=== PATIENT | male | born 1950 | race Caucasian/White ===

== ENCOUNTER 2021-06-10 12:48 | Inpatient (IN) | payer MEDICARE, MEDICAID, SELFPAY ==
--- NOTE | ~2021-06-10 | XR_ITS ---
EXAMINATION: XR abdomen/kub 1V DATE: 06/14/2021 09:01 INDICATION: Abdominal pain. Nausea. TECHNIQUE: A supine view of the abdomen on 2 radiographs was obtained. COMPARISON: CT abdomen and pelvis 06/10/2021 FINDINGS: There are no dilated loops of bowel. There is a moderate volume of stool in the colon. Ther e is no visible urolithiasis. There are phleboliths in the pelvis. IMPRESSION: 1. Normal bowel gas pattern. Reviewed, dictated and finalized at location A. R SUPERINTENDENT
--- NOTE | ~2021-06-10 | XR_ITS ---
EXAMINATION: XR hip BI 2V w AP pelvis DATE: 06/10/2021 13:48 INDICATION: Pelvis injury. TECHNIQUE: An anteroposterior view of the pelvis and 2 views of each hip were obtained. COMPARISON: None. FINDINGS: Bone alignment is normal. No fracture. There is severe lumbar spondylosis. There is moderat e osteoarthritis of the hips. IMPRESSION: 1. Moderate osteoarthritis of the hips. Reviewed, dictated and finalized at location A. L ADMINISTRATIVE ASSISTANT
--- NOTE | ~2021-06-10 | XR_ITS ---
EXAMINATION: XR chest 2V DATE: 06/12/2021 12:06 INDICATION: Shortness of breath. Pneumonia. TECHNIQUE: frontal and lateral views of the chest were obtained. COMPARISON: Chest radiograph dated 06/10/2021 FINDINGS: Subtle opacities in the left lower lung zone consistent with pneumonia. Calcified right upper lobe no dule consistent with old granulomatous disease. No pulmonary edema, pleural effusion or pneumothorax. Heart size is normal. Median sternotomy wires and mediastinal surgical clips are seen, likely from p rior coronary artery bypass grafting. Mild degenerative skeletal changes in the spine and at both kim ulders. Prior distal right clavicle resection. IMPRESSION: 1. No significant change in subtle left lower lobar opacities consistent with pneumonia. Reviewed, dictated and finalized at location H. IL MANAGEMENT TRAINEE IMPRESSION: 1. No significant change in subtle left lower lobar opacities consistent with p neumonia.
--- NOTE | ~2021-06-10 | XR_ITS ---
EXAMINATION: XR barium swallow modified DATE: 06/14/2021 09:07 INDICATION: Aspiration. TECHNIQUE: The patient was given barium-containing material of multiple consistencies to swallow by t he speech pathologist while I performed fluoroscopy. Fluoroscopy exposure time was 0.5 minutes. The n umber of fluoroscopy images saved to the PACS was 2. Dose-area product was 0.414 Gy-cm^2. FINDINGS: There was laryngeal penetration and aspiration of thin liquids. IMPRESSION: 1. Laryngeal penetration and aspiration of thin liquids. 2. Please refer to the speech therapy report for recommendations. Reviewed, dictated and finalized at location A. NE SERVICE OPERATOR
--- NOTE | ~2021-06-10 | CT_ITS ---
EXAMINATION: CT cervical spine wo con DATE: 06/10/2021 13:39 INDICATION: Neck pain. Fall. TECHNIQUE: Computed tomography (CT) of the cervical spine was performed without intravenous contrast. Automated exposure control and iterative reconstruction technique were employed. The dose-length pro duct was 264.52 mGy-cm. COMPARISON: None FINDINGS: Bone alignment is normal. Vertebral body heights are normal. There is moderately decreased disc height at C2-C3, severely decreased disc height from C3-C4 through C6-C7, and mildly decreased d isc height at C7-T1 with endplate remodeling. The following disc levels are specifically discussed: C2-C3: There is mild right and moderate left uncovertebral joint osteoarthritis. There is mild right and severe left facet joint osteoarthritis. There is mild left neural foraminal stenosis. There is no central canal stenosis. C3-C4: There is severe bilateral uncovertebral joint osteoarthritis. There is moderate right and shani re left facet joint osteoarthritis. There is mild bilateral neural foraminal stenosis. There is mild central canal stenosis. C4-C5: There is severe bilateral uncovertebral joint osteoarthritis. There is severe right and modera te left facet joint osteoarthritis. There is moderate right and mild left neural foraminal stenosis. There is mild central canal stenosis. C5-C6: There is severe bilateral uncovertebral joint osteoarthritis. There is mild bilateral facet karolina int osteoarthritis. There is moderate bilateral neural foraminal stenosis. There is mild central yenny l stenosis. C6-C7: There is severe bilateral uncovertebral joint osteoarthritis. There is moderate bilateral face t joint osteoarthritis. There is mild bilateral neural foraminal stenosis. There is mild central yenny l stenosis. C7-T1: There is no uncovertebral joint osteoarthritis. There is severe bilateral facet joint osteoart hritis. There is no neural foraminal stenosis. There is no central canal stenosis. IMPRESSION: 1. No fracture. 2. Severe cervical spondylosis. Reviewed, dictated and finalized at location A. NT ADMINISTRATOR
--- NOTE | ~2021-06-10 | CT_ITS ---
EXAMINATION: CT abdomen pelvis wo con DATE: 06/10/2021 15:35 INDICATION: Abdominal pain TECHNIQUE: Computed tomography (CT) of the abdomen and pelvis was performed without intravenous contr ast. Automated exposure control and iterative reconstruction technique were employed. Exam dose: 535 .18 mGy-cm total exam DLP. COMPARISON: None. FINDINGS: There is prominent patchy left lower lobe infiltrate likely due to pneumonia. Aspiration pn eumonitis is not excluded. The right lower lung field appears clear. Status post sternotomy. Normal heart size. No pericardial or pleural effusion. The gallbladder is present. No gallbladder wall thickening or pericholecystic fluid or fat stranding is noted. No bile duct or pancreatic duct dilatation. No hepatic space-occupying mass lesion is detected. Normal splenic size. Normal morphology of the adr enal glands. No renal mass lesion or urinary tract calculus or hydroureteronephrosis. There is mild t hickening of the urinary bladder wall and prostate enlargement. No evidence of appendicitis. No bowel obstruction, bowel wall thickening, pneumatosis or intraperiton eal free air. Very small fat-containing umbilical hernia. There is atherosclerotic calcification but normal caliber of the abdominal aorta. No intraperitoneal or retroperitoneal or pelvic mass lesion or adenopathy or ascites. Bilateral hip prominent osteoarthritis. Multilevel degenerative disc disease of the lumbar spine, particularly severe at L4-5 and L5-S1. IMPRESSION: Prominent left lower lobe infiltrate likely due to pneumonia versus aspiration pneumonit is Status post sternotomy Reviewed, dictated and finalized at Location A. Reviewed, dictated and finalized at location B. LEASE BROKER IMPRESSION: Prominent left lower lobe infiltrate likely due to pneumonia versu s aspiration pneumonitis Status post sternotomy
--- NOTE | ~2021-06-10 | CT_ITS ---
EXAMINATION: CT brain wo con DATE: 06/10/2021 13:39 INDICATION: Head injury. TECHNIQUE: Computed tomography (CT) of the head was performed without intravenous contrast. The mA wa s adjusted according to patient size. Iterative reconstruction technique was employed. The dose-lengt h product was 681.00 mGy-cm. COMPARISON: None FINDINGS: There are old infarcts in the jadiel and left thalamus. There is cystic encephalomalacia in t he left frontoparietal deep white matter. There are scattered areas of low attenuation in the cerebra l white matter. There is no intracranial hemorrhage, acute infarction, or abnormal intracranial mass lesion. The ventricles are normal in size. There is mild mucosal thickening in the ethmoid sinuses. T here are likely changes of ocular lens replacement surgeries. The mastoid air cells are normal. IMPRESSION: 1. 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 2. Extensive nonspecific cerebral white matter disease, which likely represents chronic small vessel ischemic disease. Reviewed, dictated and finalized at location A. ING MOLDER IMPRESSION: 1. 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 2. Extensive nonspecific cerebral white matter disease, which likely represents chronic small vessel ischemic disease.
--- NOTE | ~2021-06-10 | XR_ITS ---
EXAMINATION: XR ankle LT min 3V DATE: 06/10/2021 13:49 INDICATION: Left ankle pain. TECHNIQUE: 4 views of left ankle were obtained. COMPARISON: None. FINDINGS: Bone alignment is normal. No fracture. Joint spaces are well maintained. There is a surgica l clip in the medial soft tissues. IMPRESSION: 1. No fracture. Reviewed, dictated and finalized at location A. NG CAPTAIN IMPRESSION: 1. No fracture.
--- NOTE | ~2021-06-10 | XR_ITS ---
EXAMINATION: XR chest 1V DATE: 06/10/2021 13:49 INDICATION: Fall. TECHNIQUE: A single frontal view of the chest was obtained. COMPARISON: None. FINDINGS: A calcified right lung nodule and calcified right hilar lymph nodes are consistent with old granulomatous disease. A skin fold overlies left hemithorax. No pleural effusion or pneumothorax. Th e heart size is normal. Median sternotomy wires and mediastinal surgical clips are seen, likely from prior coronary artery bypass grafting. IMPRESSION: 1. No acute cardiopulmonary disease. Reviewed, dictated and finalized at location A. R PATTERN INSPECTOR
--- NOTE | ~2021-06-10 | US_ITS ---
EXAMINATION: US arterial ankle brachial ind DATE: 06/11/2021 10:23 INDICATION: Decreased pedal pulses TECHNIQUE: Segmental pressures and plethysmographic and Doppler waveforms of the brachial and lower e xtremity arteries were obtained. COMPARISON: None. FINDINGS: Right and left brachial artery pressures of 169 mm Hg and 175 mm Hg, respectively, are concordant (no rmal difference <= 30 mmHg). The right ankle-brachial index (NICOLA) is 1.1 (normal >= 0.9-1.0). The right great toe-brachial index ( TBI) is that determined because the right great toe has been amputated. (normal >= 0.65). Arterial Do ppler waveforms are biphasic. The left NICOLA is not determined because the posterior tibial and dorsalis pedis arteries could not be occluded.. The left TBI is 0.49. Arterial Doppler waveforms are biphasic. IMPRESSION: Normal right NICOLA Left NICOLA could not be obtained because the posterior tibial and dorsalis pedis arteries could not be occluded Status post right great toe amputation Left TBI measures 0.49, below normal range Reviewed, dictated and finalized at Location A. Reviewed, dictated and finalized at location A. ETCHER
--- NOTE | ~2021-06-10 | US_ITS ---
US renal BI DATE: 06/11/2021 09:40 INDICATION: Renal failure TECHNIQUE: Real-time imaging of kidneys and urinary bladder COMPARISON: 06/10/2021 CT abdomen pelvis FINDINGS: Kidneys each measure approximately 8 cm length. Approximately 1.2 cm left renal cyst is sug gested. No hydronephrosis of either kidney is noted. There is diffuse thickening of the urinary bladder wall. Prostate enlargement is noted.. IMPRESSION: No hydronephrosis of either kidney 1.2 cm left renal cyst Prostate enlargement and diffuse thickening of the urinary bladder wall Reviewed, dictated and finalized at Location A. Reviewed, dictated and finalized at location A. EYARD SUPERVISOR
--- NOTE | ~2021-06-10 | XR_ITS ---
EXAMINATION: XR barium swallow modified DATE: 06/11/2021 09:22 INDICATION: Dysphagia. TECHNIQUE: The patient was given barium-containing material of multiple consistencies to swallow by awa reyes speech pathologist while I performed fluoroscopy. Dose-area product was 0.434 Gy-cm2. 0.6 minutes fluoroscopy time FINDINGS: Oral Stage: Within functional limits Pharyngeal Phase: Laryngeal penetration and aspiration Cervical/Esophageal Stage: Within functional limits IMPRESSION: Modified esophagram findings as above. Please refer to the speech therapy report for spec amg specialty hospital recommendations. Reviewed, dictated and finalized at Location A. Reviewed, dictated and finalized at location A. GENCY MEDICAL TECHNICIAN/DRIVER IMPRESSION: Modified esophagram findings as above. Please refer to the speech t herapy report for specific recommendations.
--- NOTE | ~2021-06-10 | XR_ITS ---
EXAMINATION: XR elbow RT min 3V DATE: 06/10/2021 13:49 INDICATION: Right elbow injury with skin tear. TECHNIQUE: 4 views of right elbow were obtained. COMPARISON: None. FINDINGS: Bone alignment is normal. No fracture. Joint spaces are well maintained. There is no elbow joint effusion. IMPRESSION: 1. No fracture. Reviewed, dictated and finalized at location A. SCHOOL TEACHER IMPRESSION: 1. No fracture.
[2021-06-10 12:47] VITALS: BP 129/91; PULSE 92; RESP 18; TEMP 37.2; O2SAT 100
--- NOTE | 2021-06-10 13:07 | PC.NURSE ---
upon inspection of patients bilateral feet and toes appear cold to touch and discolored. right and left pedal pulses were found with doppler
--- NOTE | 2021-06-10 13:21 | ECG_ITS ---
Measurements Intervals [place] Rate: 91 P: 93 OR: 147 QRS: -42 QRSD: 94 T: 133 QT: 390 QTc: 481 Interpretive Statements SINUS RHYTHM LEFT AXIS DEVIATION INCOMPLETE RIGHT BUNDLE BRANCH BLOCK DELAYED PRECORDIAL R/S TRANSITION NONSPECIFIC ST & T-WAVE ABNORMALITY- SEPT/LAT LEADS BASELINE ARTIFACT- I, II, III, AVR, AVL, AVF BORDERLINE ECG Electronically Signed On 06-10-2021 17:07:27 FIRE LOSS PREVENTION ENGINEER by Quincy Rajput D.O.
--- NOTE | 2021-06-10 13:32 | PC.NURSE ---
patient to radiology.
--- NOTE | 2021-06-10 13:36 | ED.FALL ---
HPI - Fall General Chief Complaint: Fall Stated Complaint: FELL OUT OF BED-L FOOT PAIN Time Seen by Provider: 06/10/21 13:00 Source: EMS and RN notes reviewed Mode of arrival: EMS History of Present Illness HPI Narrative: This is a 70 year old male with history of chronic kidney disease, anemia, DM, and atrial fibrillation who presents for evaluation after an unwitnessed fall. He was found after falling out of bed this morning but they are unsure of what time he fell. He was found to have abrasion to his head, right elbow skin tear and left ankle pain. Patient is oriented x 2 and it is reported he is at his baseline. Related Data Allergies Allergy/AdvReac Type Severity Reaction Status Date / Time amoxicillin Allergy Unknown Unverified 06/10/21 13:07 clavulanic acid Allergy Unknown Unverified 06/10/21 13:07 [From Augmentin] insulin detemir Allergy Unknown Unverified 06/10/21 13:07 venlafaxine Allergy Unknown Unverified 06/10/21 13:07 Review of Systems Review of Systems: All systems reviewed & are unremarkable except as noted in HPI and below PMFSH Past Medical History Medical History (Updated 06/10/21 @ 17:02 by Olga Calvillo MD) Anemia Chronic kidney disease Diabetes mellitus Hyperlipidemia Surgical History Surgical History (Updated 06/10/21 @ 13:52 by Olga Calvillo MD) Hx of CABG Social History Social History (Updated 06/10/21 @ 13:52 by Olga Calvillo MD) Smoking status: Unknown if ever smoked Exam Const: General: no acute distress and alert Other: oriented 2 HENMT: Head: normocephalic and other (abrasion to mid forehead) Face and sinus: face symmetric Mouth: Yes Normal oral and palatal mucosa present, Yes lip normal, Yes oropharynx normal and Yes moist mucous membranes Throat: posterior oropharynx normal Eyes: Pupils: Equal, round and reactive pupils present EOM: EOMs intact bilaterally Neck: Neck: normal visual inspection Chest: Chest palpation & inspection: normal inspection of the chest Resp: Effort & Inspection: normal respiratory effort and no retractions Auscultation: clear to auscultation bilaterally Cardio: Rate: regular rate Rhythm: regular rhythm Heart sounds: no murmurs GI: GI Palp: Yes Soft to palpation, No Tenderness to palpation present (GI) and No Guarding due to palpation present (GI) Auscultation: normal bowel sounds Extrem: Other: moves all extremities, able to doppler bilateral pedal pulses Course Reevaluation(s) Reevaluation #1: PAtient will be admitted for pneumonia, UTI and hypoglycemia. PAtient coughs when he attempted to drink orange juice. [facility] and patient is on nectar thickened liquids and is known to aspirate. I discussed with Pamela Briceno who accepts patient to [facility] Date: 06/10/21 Time: 16:57 Vital Signs Vital signs: Vital Signs Temperature 98.9 F 06/10/21 12:47 Pulse Rate 92 06/10/21 12:47 Respiratory Rate 18 06/10/21 12:47 Blood Pressure 129/91 H 06/10/21 12:47 Pulse Oximetry 100 06/10/21 12:47 Temperature 98.9 F 06/10/21 12:47 Pulse Rate 78 06/10/21 15:18 Respiratory Rate 18 06/10/21 12:47 Blood Pressure 161/73 H 06/10/21 15:18 Pulse Oximetry 97 06/10/21 15:18 MDM - Fall Lab Data Attestation: I reviewed the patient's lab results. Result diagrams: 06/10/21 14:07 06/10/21 14:07 Labs: Lab Results 06/10/21 06/10/21 06/10/21 Range/Units 14:07 14:07 14:28 WBC 18.7 H (4.5-10.0) K/mm3 RBC 4.77 (4.6-6.20) M/mm3 Hgb 13.9 L (14.0-18.0) g/dL Hct 44.6 (42.0-52.0) % MCV 93.5 (80-100) fl MCH 29.1 (26-34) pg MCHC 31.2 L (32-36) g/dl RDW 15.7 H (11.5-14.5) % Plt Count 294 (150-375) k/mm3 MPV 11.4 H (7.4-10.4) fl Immature Gran % (Auto) Not Reportable Neut % (Auto) Not Reportable Lymph % (Auto) Not Reportable [place] % (Auto) Not Reportable Eos % (Au
[2021-06-10 14:20] LABS: Hematocrit 44.6 % (42.0-52.0); Hemoglobin 13.9 g/dL (14.0-18.0); Mean Corpuscular HGB Conc 31.2 g/dl (32-36); Mean Corpuscular Hemoglobin 29.1 pg (26-34); Mean Corpuscular Volume 93.5 fl (80-100); Mean Platelet Volume 11.4 fl (7.4-10.4); Platelet Count Result 294 k/mm3 (150-375); Red Blood Count 4.77 M/mm3 (4.6-6.20); Red Cell Distribution Width 15.7 % (11.5-14.5); White Blood Count 18.7 K/mm3 (4.5-10.0)
[2021-06-10 14:33] LABS: Alanine Aminotransferase 46 U/L (4-50); Albumin Level 4.4 g/dL (3.5-5.1); Alkaline Phosphatase 147 U/L (38-126); Anion Gap 12 mmol/L (8-16); Aspartate Amino Transferase 33 U/L (17-59); Bilirubin,Total 0.5 mg/dL (0.2-1.3); Blood Urea Nitrogen 60 mg/dL (9-20); Calcium 10.2 mg/dL (8.4-10.2); Carbon Dioxide 33 mmol/L (22-30); Chloride 101 mmol/L (98-107); Creatine Kinase 45 U/L (55-170); Estimated CRCL calculation 16 ml/min; Estimated Glomerular Filt Rate 19; Glucose 37 mg/dL (65-110); Lipase 30 U/L (23-300); Potassium 4.3 mmol/L (3.4-5.0); Sodium 146 mmol/L (137-145)
--- NOTE | 2021-06-10 14:33 | PC.NURSE ---
patient stuck multiple times for lab draws. unsuccessful at this time. phlebotomy called to obtain blood draw.
--- NOTE | 2021-06-10 14:42 | PC.NURSE ---
Patient given apple juice to increase blood sugar.
[2021-06-10 14:44] LABS: Band Neutrophils Percent 9 % (0-6); Hypochromasia 1+ (NORMAL); Monocytes Absolute Manual 0.37 K/mm3 (0.1-0.90); Monocytes Percent Manual 2 % (3-9); Neutrophils Absolute Manual 17.01 K/mm3 (1.3-6.7); Neutrophils Percent Manual 82 % (46-73); Platelet Estimate Adequate (Adequate); Total Cells Counted 100
[2021-06-10 14:45] LABS: Anisocytosis 1+ (NORMAL)
[2021-06-10 15:05] LABS: Glucose Point of Care 31 mg/dl (65-105)
[2021-06-10] MEDS: DEXTROSE 50% 25 GM/50 ML SYRINGE IV PUSH (15:06)
[2021-06-10 15:07] LABS: Add Urine Microscopic? YES; Appearance Urine Cloudy (Clear); Bacteria Urine 3+ /hpf; Bilirubin Urine Negative (Negative); Blood Urine 2+ (Negative); Color Urine Amber (Yellow); Glucose Urine UA 3+ mg/dL (Negative); Ketones Urine Negative (Negative); Leukocyte Esterase Ur 3+ LEU/UL (Negative); Mucus Urine Rare /lpf; Nitrate Urine Negative (Negative); Protein Urine 3+ mg/dL (Negative); RBC Urine 21-50 /hpf (0-2); Specific Grav Ur 1.015 (1.001-1.035); Squamous Epithelial Cell Urine Few /hpf (Few); Urobilinogen Urine Negative mg/dL (<2.0); WBC Urine >75 /hpf
--- NOTE | 2021-06-10 15:16 | PC.NURSE ---
attempted to give patient PO apple juice but patient began to cough after ingestion. pt. thoroughly suctioned and EDP Karli aware.
[2021-06-10 15:18] VITALS: BP 161/73; PULSE 78; O2SAT 97
[2021-06-10 15:26] LABS: Glucose Point of Care 146 mg/dl (65-105)
--- NOTE | 2021-06-10 15:28 | PC.NURSE ---
talked to [facility] regarding a patients normal mental status and diet. they state pt. has a mechanical soft diet, and chokes after everything, also still has been receiving insulin EDP Karli is notified.
--- NOTE | 2021-06-10 15:32 | PC.NURSE ---
patient to CT
[2021-06-10] MEDS: SODIUM CHLORIDE 0.9% IV 1,000 ML 999 ML IV CONT ×2 (15:46→16:54)
[2021-06-10 16:21] LABS: Glucose Point of Care 117 mg/dl (65-105)
--- NOTE | 2021-06-10 16:30 | PM.IMHP ---
H&P: HPI History of Present Illness Date/Time: 06/10/21 16:30 Chief Complaint: Unwitnessed fall. Narrative: This is a 70-year-old male with insulin-dependent diabetes, coronary artery disease, paroxysmal atrial fibrillation, chronic kidney disease and several other comorbidities who presented to the emergency department earlier today via EMS from [facility] for evaluation after an unwitnessed fall. He is alert and oriented x2 (his reported baseline) but is not a great historian and as such some of the following is obtained via a review of his electronic medical records. According to EMS documentation, the patient was found lying next to his bed and is thought that he probably had fallen out of bed as he was noted to have a skin tear on the right elbow and abrasions to the forehead. Initially the patient tells me that he does not remember how he fell but later on interview he reported that he got up and felt dizzy and he is concerned that he may have passed out. His vital signs were stable on arrival to the emergency department. Pertinent labs included a leukocytosis with a left shift, mild hypernatremia, a glucose of 37, and a BUN and creatinine of 60 and 3.30 respectively. Multiple images were taken and ruled out acute injuries from the fall. He was noted to have a prominent left lower lobe infiltrate felt to be due to pneumonia verses aspiration pneumonitis and an abnormal urinalysis and he is being admitted in this setting. He has no complaints at the time my evaluation and he specifically denies fever, chills, sweats, headache, cold and flu symptoms, cough, chest pain, shortness of breath, nausea, vomiting, diarrhea, and dysuria. Review of Systems Review of Systems: Twelve systems were reviewed but are limited as he is not the greatest historian. He complains of mild left ankle pain but nothing significant. He denies claudication. Except as documented all other systems were reviewed and are negative. [facility] Past Medical History Medical History (Updated 06/10/21 @ 21:31 by Pamela Briceno PA-C) Anemia Chronic anticoagulation Chronic kidney disease Coronary artery disease Depression with anxiety Hyperlipidemia Paroxysmal atrial fibrillation Type 2 diabetes mellitus Surgical History Surgical History (Updated 06/10/21 @ 21:22 by Pamela Briceno PA-C) History of coronary artery bypass graft Family History Family History Other Unknown family medical history Social History Social History (Updated 06/10/21 @ 21:23 by Pamela Briceno PA-C) Social History: Surrogate decision maker: MANUEL Mejía. Code status: Full code. Smoking status: Never smoker Alcohol intake: never Substance use: never Substance use type: does not use Additional living arrangements comments: Currently at [facility]. Essentially wheelchair-bound. Additional occupation/education comments: Retired. Meds Home Medications and Allergies Home Medications Medication Instructions Recorded Confirmed Type acetaminophen 650 mg PO Q6H PRN 06/10/21 06/10/21 History aspirin 81 mg PO DAILY 06/10/21 06/10/21 History atorvastatin 80 mg PO HS 06/10/21 06/10/21 History benzonatate 100 mg PO TID PRN 06/10/21 06/10/21 History bisacodyl 5 mg PO DAILY PRN 06/10/21 06/10/21 History carboxymethylcellulose sodium 1 drp RIGHT EYE Q2H PRN 06/10/21 06/10/21 History [Artificial Tears ([facility])] citalopram 40 mg PO DAILY 06/10/21 06/10/21 History ferrous sulfate 325 mg PO DAILY 06/10/21 06/10/21 History furosemide 40 mg PO DAILY 06/10/21 06/10/21 History insulin lispro 3 unit SUBCUT TIDWM 06/10/21 06/10/21 History insulin lispro See Rx Instructions .ROUTE .COMPLEX 06/10/21 06/10/21 History metoprolol succinate 50 mg PO DAILY 06/10/21 06/10/21 History ondansetron [Zofran ODT] 4 mg PO TID PRN 06/10/21 06/10/21 History polyethylene glycol 3350 17 g PO DAILY PRN 06/10/21
--- NOTE | 2021-06-10 17:04 | PC.NURSE ---
EDP Calvillo aware of pt with difficult blood draw. per EDP no blood cultures needed at this time.
[2021-06-10 17:05] LABS: Glucose Point of Care 119 mg/dl (65-105)
[2021-06-10 17:16] VITALS: BP 144/69; PULSE 74; RESP 14; O2SAT 99
[2021-06-10 17:52] LABS: Glucose Point of Care 164 mg/dl (65-105)
--- NOTE | 2021-06-10 18:11 | ADMGEN ---
This patient, Power Perez, was admitted to Medical Room 346-01. Patient/family oriented to hospital policies and general routines including ID bracelet, bed and alarms, visiting hours, pain management, procedures, bathroom and other care routines, personal items, smoking policy, room service/diet, and visiting hours. Information on how to activate the Rapid Response Team has been discussed. Patient/Family are encouraged to report perceived risks to care and to ask questions if they do not understand what they are told or what they should do.
[2021-06-10 18:24] VITALS: BP 158/73; PULSE 73; RESP 16; TEMP 37.4; O2SAT 96
[2021-06-10 18:27] VITALS: BMI 17.0
[2021-06-10 19:59] LABS: INR 2.3; Prothrombin Time 24.4 Seconds (11.1-14.7)
[2021-06-10 20:00] VITALS: PULSE 61
[2021-06-10 20:00] LABS: Partial Thromboplastin Time 42.5 SECONDS (22.3-36.8)
[2021-06-10 20:22] LABS: Glucose Point of Care 133 mg/dl (65-105)
[2021-06-10 21:12] VITALS: BP 168/81; PULSE 73; RESP 20; TEMP 36.9; O2SAT 99
[2021-06-10 21:43] LABS: Anion Gap 11 mmol/L (8-16); Blood Urea Nitrogen 58 mg/dL (9-20); Calcium 9.1 mg/dL (8.4-10.2); Carbon Dioxide 29 mmol/L (22-30); Chloride 103 mmol/L (98-107); Estimated CRCL calculation 17 ml/min; Estimated Glomerular Filt Rate 20; Glucose 147 mg/dL (65-110); Magnesium 2.5 mg/dL (1.6-2.3); Potassium 4.6 mmol/L (3.4-5.0); Sodium 143 mmol/L (137-145)
[2021-06-10 21:52] LABS: Hemoglobin A1C 10.3 % (<5.7)
[2021-06-10] MEDS: ATORVASTATIN 40 MG TABLET 80 MG PO (22:38)
[2021-06-10] MEDS: SODIUM CHLORIDE 0.9% IV 1,000 ML 75 ML IV CONT (22:41)
[2021-06-10] MEDS: ONDANSETRON INJ 4 MG/2 ML VIAL IV PUSH (23:59)
[2021-06-11] VITALS (9 sets, daily range): BP systolic 131–204; BP diastolic 60–90; PULSE 50–71; RESP 14–20; TEMP 36.1–37; O2SAT 99–100; BMI 17.0
[2021-06-11 00:39] LABS: Glucose Point of Care 65 mg/dl (65-105)
[2021-06-11] MEDS: DEXTROSE 50% 25 GM/50 ML SYRINGE IV PUSH (00:54)
[2021-06-11 01:25] LABS: Glucose Point of Care 108 mg/dl (65-105)
[2021-06-11] MEDS: DEXTROSE 10% 1,000 ML 65 ML IV CONT (01:41)
[2021-06-11 04:12] LABS: Glucose Point of Care 134 mg/dl (65-105)
[2021-06-11 05:57] LABS: Basophils Percent Auto 0.1 % (0.2-1.2); Hematocrit 34.5 % (42.0-52.0); Hemoglobin 10.6 g/dL (14.0-18.0); Immature Granulocyte Absolute 0.07 K/mm3 (0.00-0.031); Immature Granulocyte Percent A 0.5 % (0-0.5); Lymphocytes Absolute Auto 1.27 K/mm3 (0.9-3.2); Lymphocytes Percent Auto 9.2 % (18.3-44.2); Mean Corpuscular HGB Conc 30.7 g/dl (32-36); Mean Corpuscular Hemoglobin 28.6 pg (26-34); Mean Corpuscular Volume 93.2 fl (80-100); Mean Platelet Volume 11.8 fl (7.4-10.4); Monocytes Absolute Auto 0.5 K/mm3 (0.1-0.6); Monocytes Percent Auto 3.8 % (2.6-8.5); Neutrophils Absolute Auto 11.9 K/mm3 (1.3-6.7); Neutrophils Percent Auto 86.4 % (45.5-73.1); Platelet Count Result 216 k/mm3 (150-375); Red Cell Distribution Width 15.8 % (11.5-14.5); White Blood Count 13.8 K/mm3 (4.5-10.0)
[2021-06-11 06:07] LABS: Alanine Aminotransferase 27 U/L (4-50); Alkaline Phosphatase 104 U/L (38-126); Anion Gap 5 mmol/L (8-16); Aspartate Amino Transferase 24 U/L (17-59); Bilirubin,Total 0.4 mg/dL (0.2-1.3); Blood Urea Nitrogen 55 mg/dL (9-20); Calcium 8.5 mg/dL (8.4-10.2); Carbon Dioxide 31 mmol/L (22-30); Chloride 107 mmol/L (98-107); Estimated CRCL calculation 18 ml/min; Estimated Glomerular Filt Rate 22; Glucose 153 mg/dL (65-110); INR 2.2; Magnesium 2.4 mg/dL (1.6-2.3); Phosphorus 3.6 mg/dL (2.5-4.5); Potassium 4.4 mmol/L (3.4-5.0); Prothrombin Time 23.7 Seconds (11.1-14.7); Sodium 143 mmol/L (137-145)
[2021-06-11 07:58] LABS: Glucose Point of Care 162 mg/dl (65-105)
--- NOTE | 2021-06-11 09:15 | PCSTNOTE ---
Please refer to the Modified Barium Swallow Evaluation in the EMR.
[2021-06-11] MEDS: ASPIRIN 81 MG ENTERIC TABLET PO (11:12)
[2021-06-11] MEDS: CITALOPRAM HYDROBROMIDE 10 MG TABLET 40 MG PO (11:12)
[2021-06-11] MEDS: METOPROLOL SUCCINATE EXT REL 50 MG TABCR PO (11:12)
[2021-06-11] MEDS: FERROUS SULFATE 324 MG TABLET PO (11:12)
[2021-06-11 11:40] LABS: Glucose Point of Care 225 mg/dl (65-105)
[2021-06-11 14:24] LABS: Creatinine Urine 89.4 mg/dL; Total Protein Urine Random 144 mg/dL; Ur Ttl Prot Creatinine Ratio 1.61 mg/mg (0-0.20)
[2021-06-11 14:25] LABS: Potassium Urine Random 54.3 meq/L; Sodium Urine Random 29 meq/L
--- NOTE | 2021-06-11 15:25 | PM.IMPN ---
Progress Note: A&P Assessment and Plan (1) Sepsis: Code(s): A41.9 - Sepsis, unspecified organism Status: Acute Assessment and Plan: Present on admission and supported by leukocytosis with left shift and acute kidney injury. Lactic acid level was not drawn on arrival. Blood in urine cultures have been ordered and are pending. The patient's vital signs have been stable. (2) Urinary tract infection: Code(s): N39.0 - Urinary tract infection, site not specified Status: Acute Assessment and Plan: Continue ceftriaxone, pending urine culture. (3) Hypoglycemia: Code(s): E16.2 - Hypoglycemia, unspecified Status: Acute Assessment and Plan: Improved with dextrose. Monitor Accu-Cheks frequently to ensure stability. Hold mealtime insulin. (4) Unwitnessed fall: Code(s): R29.6 - Repeated falls Status: Acute Assessment and Plan: Patient reportedly fell from his bed today though the fall was unwitnessed. He is not a reliable historian but at 1 point during the and review the told me he thinks he may have lost consciousness. He will be monitor on telemetry overnight to rule out cardiac dysrhythmia. Echocardiogram ordered for a.m. (5) Closed head injury: Code(s): S09.90XA - Unspecified injury of head, initial encounter Status: Acute Assessment and Plan: Obtained in fall earlier today. Continue neurologic checks as he is on warfarin. (6) Decreased pedal pulses: Code(s): R09.89 - Other specified symptoms and signs involving the circulatory and respiratory systems Status: Acute Assessment and Plan: Decreased pedal pulses, left greater than right. No acute ischemia. Check ABIs tomorrow. (7) Chronic anticoagulation: Code(s): Z79.01 - [facility] (current) use of anticoagulants Status: Acute Assessment and Plan: INR is therapeutic at 2.3. Hold this evening's dose of warfarin given recent fall and head trauma. Resume if stable in the next 24 to 48 hours. (8) Abnormal lung scan: Code(s): R94.2 - Abnormal results of pulmonary function studies Status: Acute Assessment and Plan: CT of the abdomen and pelvis showed a consolidation in the left lower lobe consistent with pneumonia or aspiration pneumonitis. Will add azithromycin to ceftriaxone which he is currently receiving for urinary tract infection. Swallow study in a.m.. (9) Paroxysmal atrial fibrillation: Code(s): I48.0 - Paroxysmal atrial fibrillation Status: Acute Assessment and Plan: Currently in a sinus rhythm. (10) Kidney failure: Code(s): N19 - Unspecified kidney failure Status: Acute Assessment and Plan: Documented history of chronic kidney disease however baseline creatinine is unknown. He does appear dry on exam and given elevated sodium will receive cautious IV hydration overnight. Records requested from his primary care provider for review. Renal ultrasound and urine electrolytes have been ordered. Avoid nephrotoxic agents. (11) Type 2 diabetes mellitus: Code(s): E11.9 - Type 2 diabetes mellitus without complications Status: Acute Assessment and Plan: Hold mealtime insulin and oral hypoglycemics. Initiate sliding scale insulin, Accu-Cheks, and hypoglycemic protocol. Check A1c. Additional Plan 06/11/2021 Patient sugar is better now. So low held shows possible aspiration if mechanical soft diet no used. Plan is to restart mechanical so tight with thickening. Monitor glucose closely. Repeat labs in the morning. Subjective Date/time seen: 06/11/21 15:25 Patient was seen during the morning rounds today. Feels slightly better. No shortness of breath or chest pain. No abdominal pain, nausea no vomiting mood stable. Scheduled for swallow evaluation today Review of Systems Review of Systems: All systems reviewed & are unremarkable except as not
[2021-06-11 15:44] LABS: Glucose Point of Care 299 mg/dl (65-105)
[2021-06-11 16:49] LABS: Glucose Point of Care 309 mg/dl (65-105)
[2021-06-11] MEDS: LOSARTAN POTASSIUM 50 MG TABLET PO (16:49)
[2021-06-11] MEDS: INSULIN HUMAN REGULAR (*BKC) 100 UNITS/ML SUB-Q (17:13)
--- NOTE | 2021-06-11 21:42 | ECHO_ITS ---
Patient Info Name: Power Perez Age: 70 years : 1950 Gender: Male Ht: 72 in Wt: 125 lbs BSA: 1.68 m2 HR: 67 bpm BP: 158 / 73 mmHg Heart Rhythm: Sinus Rhythm Exam Date: 06/11/2021 10:16 AM Exam Location: [facility] Patient Status: Inpatient Admit Date: 06/10/2021 Staff Ordering Physician: Pamela Briceno PA-C Storage Consultant: Familia Aragon, BILL, RT Attending Provider: Thomas Castro MD Referring Physician: Kaity LOWE; Exam Type: CA echo doppler color flow Study Info Indications I25.9 - Chronic ischemic heart disease, unspecified I10 - Essential (primary) hypertension Complete two-dimensional, color flow and Doppler transthoracic echocardiogram is performed. Summary 1. Complete two-dimensional, color flow and Doppler transthoracic echocardiogram is performed. 2. Left ventricular chamber dimension is normal. 3. Left ventricular systolic function is mildly reduced, estimated at 50-55%. 4. There is mildly increased left ventricular wall thickness. 5. The left ventricular diastolic function is grade I diastolic dysfunction. 6. The basal inferior wall, basal inferoseptal, basal anteroseptal, and mid anteroseptal are hypokinetic. 7. Left atrial chamber dimension is mildly enlarged. 8. Right atrial chamber dimension is mildly enlarged. 9. The mitral valve has anterior prolapse. 10. There is mild mitral valve regurgitation. 11. There is mild pulmonic regurgitation. Left Ventricle Left ventricular chamber dimension is normal. Left ventricular systolic function is mildly reduced, estimated at 50-55%. There is mildly increased left ventricular wall thickness. The left ventricular diastolic function is grade I diastolic dysfunction. The basal inferior wall, basal inferoseptal, basal anteroseptal, and mid anteroseptal are hypokinetic. All other caal appear normal. Right Ventricle Right ventricular chamber dimension is normal. Right ventricular systolic function is normal. Left Atria Left atrial chamber dimension is mildly enlarged. Right Atria Right atrial chamber dimension is mildly enlarged. Atrial Septum Intact interatrial septum visualized by color flow imaging. Aortic Valve The aortic valve is trileaflet. There is moderate aortic valve sclerosis. There is no aortic valve stenosis. There is trace aortic valve regurgitation. Pulmonic Valve The pulmonic valve is normal. There is no pulmonic valve stenosis. There is mild pulmonic regurgitation. Mitral Valve The mitral valve has anterior prolapse. There is no mitral valve stenosis. There is mild mitral valve regurgitation. Tricuspid Valve The tricuspid valve leaflets are normal. There is no significant tricuspid valve stenosis. There is trace tricuspid valve regurgitation. Pericardium/Pleural The pericardium appears normal. There is no pericardial effusion. Aorta The aortic root size at the sinus of Valsalva is normal. Left Ventricular Outflow Tract Name Value Normal LVOT 2D LVOT Diameter 2.2 cm LVOT Doppler LVOT Peak Gradient 2 mmHg LVOT Mean Gradient
[2021-06-11] MEDS: ATORVASTATIN 40 MG TABLET 80 MG PO (22:10)
[2021-06-11 22:15] LABS: Glucose Point of Care 217 mg/dl (65-105)
[2021-06-12 03:34] VITALS: BP 160/70; PULSE 56; RESP 20; TEMP 36.1; O2SAT 100
[2021-06-12 06:28] LABS: Hematocrit 36.3 % (42.0-52.0); Mean Corpuscular HGB Conc 30.3 g/dl (32-36); Mean Corpuscular Hemoglobin 28.2 pg (26-34); Mean Corpuscular Volume 93.1 fl (80-100); Mean Platelet Volume 12.1 fl (7.4-10.4); Platelet Count Result 225 k/mm3 (150-375); Red Cell Distribution Width 15.6 % (11.5-14.5); White Blood Count 7.9 K/mm3 (4.5-10.0)
[2021-06-12 06:37] LABS: Alanine Aminotransferase 28 U/L (4-50); Albumin Level 3.2 g/dL (3.5-5.1); Alkaline Phosphatase 107 U/L (38-126); Anion Gap 3 mmol/L (8-16); Aspartate Amino Transferase 33 U/L (17-59); Bilirubin,Total 0.5 mg/dL (0.2-1.3); Blood Urea Nitrogen 52 mg/dL (9-20); Calcium 8.7 mg/dL (8.4-10.2); Carbon Dioxide 29 mmol/L (22-30); Chloride 106 mmol/L (98-107); Estimated CRCL calculation 22 ml/min; Estimated Glomerular Filt Rate 27; Glucose 319 mg/dL (65-110); Potassium 4.5 mmol/L (3.4-5.0); Sodium 138 mmol/L (137-145)
--- NOTE | 2021-06-12 07:30 | PM.IMPN ---
Progress Note: A&P Assessment and Plan (1) Sepsis: Code(s): A41.9 - Sepsis, unspecified organism Status: Acute Assessment and Plan: Present on admission and supported by leukocytosis with left shift and acute kidney injury. Lactic acid level was not drawn on arrival. Blood in urine cultures have been ordered and are pending. The patient's vital signs have been stable. (2) Urinary tract infection: Code(s): N39.0 - Urinary tract infection, site not specified Status: Acute Assessment and Plan: Continue ceftriaxone, pending urine culture. (3) Hypoglycemia: Code(s): E16.2 - Hypoglycemia, unspecified Status: Acute Assessment and Plan: Improved with dextrose. Monitor Accu-Cheks frequently to ensure stability. Hold mealtime insulin. (4) Unwitnessed fall: Code(s): R29.6 - Repeated falls Status: Acute Assessment and Plan: Patient reportedly fell from his bed today though the fall was unwitnessed. He is not a reliable historian but at 1 point during the and review the told me he thinks he may have lost consciousness. He will be monitor on telemetry overnight to rule out cardiac dysrhythmia. Echocardiogram ordered for a.m. (5) Closed head injury: Code(s): S09.90XA - Unspecified injury of head, initial encounter Status: Acute Assessment and Plan: Obtained in fall earlier today. Continue neurologic checks as he is on warfarin. (6) Decreased pedal pulses: Code(s): R09.89 - Other specified symptoms and signs involving the circulatory and respiratory systems Status: Acute Assessment and Plan: Decreased pedal pulses, left greater than right. No acute ischemia. Check ABIs tomorrow. (7) Chronic anticoagulation: Code(s): Z79.01 - assisted (current) use of anticoagulants Status: Acute Assessment and Plan: INR is therapeutic at 2.3. Hold this evening's dose of warfarin given recent fall and head trauma. Resume if stable in the next 24 to 48 hours. (8) Abnormal lung scan: Code(s): R94.2 - Abnormal results of pulmonary function studies Status: Acute Assessment and Plan: CT of the abdomen and pelvis showed a consolidation in the left lower lobe consistent with pneumonia or aspiration pneumonitis. Will add azithromycin to ceftriaxone which he is currently receiving for urinary tract infection. Swallow study in a.m.. (9) Paroxysmal atrial fibrillation: Code(s): I48.0 - Paroxysmal atrial fibrillation Status: Acute Assessment and Plan: Currently in a sinus rhythm. (10) Kidney failure: Code(s): N19 - Unspecified kidney failure Status: Acute Assessment and Plan: Documented history of chronic kidney disease however baseline creatinine is unknown. He does appear dry on exam and given elevated sodium will receive cautious IV hydration overnight. Records requested from his primary care provider for review. Renal ultrasound and urine electrolytes have been ordered. Avoid nephrotoxic agents. (11) Type 2 diabetes mellitus: Code(s): E11.9 - Type 2 diabetes mellitus without complications Status: Acute Assessment and Plan: Hold mealtime insulin and oral hypoglycemics. Initiate sliding scale insulin, Accu-Cheks, and hypoglycemic protocol. Check A1c. Additional Plan 06/11/2021 Patient sugar is better now. So low held shows possible aspiration if mechanical soft diet no used. Plan is to restart mechanical so tight with thickening. Monitor glucose closely. Repeat labs in the morning. 06/12/2021 Patient UA shows E coli infection patient is on IV antibiotics. Patient swallow study was reviewed with nurse yesterday, patient was put on mechanical soft diet, Plan is to start physical therapy, monitor patient closely for aspiration. Wait for culture report. Repeat swallow study on Monday if needed. Possible discharge on Monday.
[2021-06-12 07:59] LABS: Glucose Point of Care 375 mg/dl (65-105)
[2021-06-12] MEDS: INSULIN HUMAN REGULAR (*BKC) 100 UNITS/ML SUB-Q ×3 (08:22→16:26)
[2021-06-12 08:26] VITALS: PULSE 80
[2021-06-12] MEDS: ASPIRIN 81 MG ENTERIC TABLET PO (08:26)
[2021-06-12] MEDS: METOPROLOL SUCCINATE EXT REL 50 MG TABCR PO (08:26)
[2021-06-12] MEDS: FERROUS SULFATE 324 MG TABLET PO (08:26)
[2021-06-12] MEDS: CITALOPRAM HYDROBROMIDE 10 MG TABLET 40 MG PO (08:26)
[2021-06-12] MEDS: LOSARTAN POTASSIUM 50 MG TABLET PO (08:27)
[2021-06-12 12:19] LABS: Glucose Point of Care 359 mg/dl (65-105)
[2021-06-12 12:49] VITALS: BP 169/93; PULSE 63; RESP 20; TEMP 36.4; O2SAT 100
[2021-06-12] MEDS: BENZONATATE 100 MG CAPSULE PO (12:49)
[2021-06-12 17:16] LABS: Glucose Point of Care 222 mg/dl (65-105)
[2021-06-12 20:00] VITALS: PULSE 63; RESP 20; O2SAT 100
[2021-06-12] MEDS: ATORVASTATIN 40 MG TABLET 80 MG PO (21:04)
[2021-06-12 22:00] VITALS: BP 180/67; PULSE 53; RESP 17; TEMP 36.3; O2SAT 100
[2021-06-12] MEDS: hydrALAZINE HCL 20 MG/ML VIAL 10 MG IV PUSH (22:49)
[2021-06-12] MEDS: ONDANSETRON INJ 4 MG/2 ML VIAL IV PUSH (22:50)
[2021-06-12 22:55] LABS: Glucose Point of Care 212 mg/dl (65-105)
[2021-06-13] MEDS: ONDANSETRON INJ 4 MG/2 ML VIAL IV PUSH (05:34)
[2021-06-13 05:42] LABS: INR 1.4; Prothrombin Time 17.3 Seconds (11.1-14.7)
[2021-06-13 06:00] VITALS: BP 172/81; PULSE 74; RESP 18; TEMP 36.6; O2SAT 97
[2021-06-13 06:05] LABS: Alanine Aminotransferase 24 U/L (4-50); Albumin Level 3.5 g/dL (3.5-5.1); Alkaline Phosphatase 122 U/L (38-126); Anion Gap 9 mmol/L (8-16); Aspartate Amino Transferase 25 U/L (17-59); Bilirubin,Total 0.7 mg/dL (0.2-1.3); Blood Urea Nitrogen 52 mg/dL (9-20); Calcium 9.1 mg/dL (8.4-10.2); Carbon Dioxide 24 mmol/L (22-30); Chloride 106 mmol/L (98-107); Estimated CRCL calculation 23 ml/min; Estimated Glomerular Filt Rate 28; Glucose 504 mg/dL (65-110); Potassium 4.5 mmol/L (3.4-5.0); Sodium 139 mmol/L (137-145)
[2021-06-13] MEDS: INSULIN HUMAN NPH (*BKC) 100 UNITS/ML 12 UNITS SUB-Q ×2 (06:40→16:47)
[2021-06-13] MEDS: hydrALAZINE HCL 20 MG/ML VIAL 10 MG IV PUSH ×2 (07:21→20:43)
[2021-06-13 07:26] LABS: Glucose Point of Care 441 mg/dl (65-105)
[2021-06-13 08:04] LABS: Glucose Point of Care 425 mg/dl (65-105)
[2021-06-13 08:23] LABS: Hematocrit 38.4 % (42.0-52.0); Hemoglobin 12.1 g/dL (14.0-18.0); Mean Corpuscular HGB Conc 31.5 g/dl (32-36); Mean Corpuscular Hemoglobin 29.4 pg (26-34); Mean Corpuscular Volume 93.2 fl (80-100); Mean Platelet Volume 11.9 fl (7.4-10.4); Platelet Count Result 247 k/mm3 (150-375); Red Blood Count 4.12 M/mm3 (4.6-6.20); Red Cell Distribution Width 15.8 % (11.5-14.5); White Blood Count 7.5 K/mm3 (4.5-10.0)
[2021-06-13 08:28] LABS: Magnesium 2.5 mg/dL (1.6-2.3)
[2021-06-13 10:12] VITALS: PULSE 68
[2021-06-13] MEDS: METOPROLOL SUCCINATE EXT REL 50 MG TABCR PO (10:12)
[2021-06-13] MEDS: BENZONATATE 100 MG CAPSULE PO (10:12)
[2021-06-13] MEDS: FERROUS SULFATE 324 MG TABLET PO (10:12)
[2021-06-13] MEDS: CITALOPRAM HYDROBROMIDE 10 MG TABLET 40 MG PO (10:12)
[2021-06-13] MEDS: PANTOPRAZOLE SODIUM IV 40 MG VIAL IV PUSH (10:13)
[2021-06-13] MEDS: LOSARTAN POTASSIUM 50 MG TABLET PO (10:13)
--- NOTE | 2021-06-13 10:53 | PM.IMPN ---
Progress Note: A&P Assessment and Plan (1) Sepsis: Code(s): A41.9 - Sepsis, unspecified organism Status: Acute Assessment and Plan: Present on admission and supported by leukocytosis with left shift and acute kidney injury. Lactic acid level was not drawn on arrival. Blood in urine cultures have been ordered and are pending. The patient's vital signs have been stable. (2) Urinary tract infection: Code(s): N39.0 - Urinary tract infection, site not specified Status: Acute Assessment and Plan: Continue ceftriaxone, pending urine culture. (3) Hypoglycemia: Code(s): E16.2 - Hypoglycemia, unspecified Status: Acute Assessment and Plan: Improved with dextrose. Monitor Accu-Cheks frequently to ensure stability. Hold mealtime insulin. (4) Unwitnessed fall: Code(s): R29.6 - Repeated falls Status: Acute Assessment and Plan: Patient reportedly fell from his bed today though the fall was unwitnessed. He is not a reliable historian but at 1 point during the and review the told me he thinks he may have lost consciousness. He will be monitor on telemetry overnight to rule out cardiac dysrhythmia. Echocardiogram ordered for a.m. (5) Closed head injury: Code(s): S09.90XA - Unspecified injury of head, initial encounter Status: Acute Assessment and Plan: Obtained in fall earlier today. Continue neurologic checks as he is on warfarin. (6) Decreased pedal pulses: Code(s): R09.89 - Other specified symptoms and signs involving the circulatory and respiratory systems Status: Acute Assessment and Plan: Decreased pedal pulses, left greater than right. No acute ischemia. Check ABIs tomorrow. (7) Chronic anticoagulation: Code(s): Z79.01 - [facility] (current) use of anticoagulants Status: Acute Assessment and Plan: INR is therapeutic at 2.3. Hold this evening's dose of warfarin given recent fall and head trauma. Resume if stable in the next 24 to 48 hours. (8) Abnormal lung scan: Code(s): R94.2 - Abnormal results of pulmonary function studies Status: Acute Assessment and Plan: CT of the abdomen and pelvis showed a consolidation in the left lower lobe consistent with pneumonia or aspiration pneumonitis. Will add azithromycin to ceftriaxone which he is currently receiving for urinary tract infection. Swallow study in a.m.. (9) Paroxysmal atrial fibrillation: Code(s): I48.0 - Paroxysmal atrial fibrillation Status: Acute Assessment and Plan: Currently in a sinus rhythm. (10) Kidney failure: Code(s): N19 - Unspecified kidney failure Status: Acute Assessment and Plan: Documented history of chronic kidney disease however baseline creatinine is unknown. He does appear dry on exam and given elevated sodium will receive cautious IV hydration overnight. Records requested from his primary care provider for review. Renal ultrasound and urine electrolytes have been ordered. Avoid nephrotoxic agents. (11) Type 2 diabetes mellitus: Code(s): E11.9 - Type 2 diabetes mellitus without complications Status: Acute Assessment and Plan: Hold mealtime insulin and oral hypoglycemics. Initiate sliding scale insulin, Accu-Cheks, and hypoglycemic protocol. Check A1c. Additional Plan 06/11/2021 Patient sugar is better now. So low held shows possible aspiration if mechanical soft diet no used. Plan is to restart mechanical so tight with thickening. Monitor glucose closely. Repeat labs in the morning. 06/13/2021 Plan is to continue current treatment. Add p.o. metformin during controlled sugar better. Continue current treatment, increase activity. Patient has refused G-tube placement. Will schedule swallow eval for tomorrow morning. if stays okay will discharge home. Subjective Date/time seen: 06/13/21 10:53 Patient was seen during t
[2021-06-13 11:36] LABS: Glucose Point of Care 258 mg/dl (65-105)
[2021-06-13] MEDS: ASPIRIN 81 MG ENTERIC TABLET PO (11:36)
[2021-06-13] MEDS: INSULIN HUMAN REGULAR (*BKC) 100 UNITS/ML SUB-Q ×2 (11:55→11:58)
--- NOTE | 2021-06-13 12:32 | PC.NURSE ---
Dr. Will put in note to isolate pt r/t ESBL in urine but verified with reinspector Joy that we no longer isolate ESBL
--- NOTE | 2021-06-13 14:27 | PC.NURSE ---
Attempted to complete ID consult for Dr. Will and was informed Dr. Sims and Dr. Linder were both not accepting calls from [facility]. Per Micki Mobility Architect, wait to complete consult until tomorrow morning, MondayJune 14.
[2021-06-13 14:50] VITALS: BP 161/82; PULSE 62; RESP 14; TEMP 36.7; O2SAT 96
[2021-06-13] MEDS: metFORMIN HCL 500 MG TABLET PO (16:42)
[2021-06-13 16:44] LABS: Glucose Point of Care 178 mg/dl (65-105)
[2021-06-13 18:05] LABS: Add Urine Microscopic? YES; Appearance Urine Cloudy (Clear); Bacteria Urine 1+ /hpf; Bilirubin Urine Negative (Negative); Blood Urine 1+ (Negative); Budding Yeast Urine Present /hpf; Color Urine Yellow (Yellow); Glucose Urine UA 3+ mg/dL (Negative); Ketones Urine Negative (Negative); Leukocyte Esterase Ur 3+ LEU/UL (Negative); Mucus Urine Rare /lpf; Nitrate Urine Negative (Negative); Protein Urine 2+ mg/dL (Negative); Specific Grav Ur 1.013 (1.001-1.035); Squamous Epithelial Cell Urine Rare /hpf (Few); Urobilinogen Urine Negative mg/dL (<2.0); WBC Clumps Urine Present /HPF; WBC Urine >75 /hpf
[2021-06-13] MEDS: ATORVASTATIN 40 MG TABLET 80 MG PO (20:17)
[2021-06-13 20:35] VITALS: BP 187/95; PULSE 63; RESP 18; TEMP 36.7; O2SAT 97
[2021-06-14 04:41] LABS: Glucose Point of Care 149 mg/dl (65-105)
[2021-06-14 06:18] LABS: Glucose Point of Care 166 mg/dl (65-105)
[2021-06-14] MEDS: INSULIN HUMAN NPH (*BKC) 100 UNITS/ML 12 UNITS SUB-Q (06:40)
[2021-06-14] MEDS: hydrALAZINE HCL 20 MG/ML VIAL 10 MG IV PUSH ×2 (07:44→19:46)
[2021-06-14 07:50] LABS: Glucose Point of Care 163 mg/dl (65-105)
[2021-06-14 07:53] VITALS: BP 200/90; PULSE 74; RESP 20; TEMP 36.7; O2SAT 96
[2021-06-14] MEDS: METOPROLOL SUCCINATE EXT REL 50 MG TABCR PO (08:23)
[2021-06-14] MEDS: BENZONATATE 100 MG CAPSULE PO (08:23)
[2021-06-14] MEDS: CITALOPRAM HYDROBROMIDE 10 MG TABLET 40 MG PO (08:23)
[2021-06-14] MEDS: ASPIRIN 81 MG ENTERIC TABLET PO (08:23)
[2021-06-14] MEDS: PANTOPRAZOLE SODIUM IV 40 MG VIAL IV PUSH (08:23)
[2021-06-14] MEDS: metFORMIN HCL 500 MG TABLET PO (08:23)
[2021-06-14] MEDS: LOSARTAN POTASSIUM 50 MG TABLET PO (08:23)
[2021-06-14] MEDS: FERROUS SULFATE 324 MG TABLET PO (08:23)
[2021-06-14 08:38] VITALS: BP 139/71; PULSE 78; RESP 20; O2SAT 95
--- NOTE | 2021-06-14 08:59 | PM.IMPN ---
Progress Note: A&P Assessment and Plan (1) Sepsis: Code(s): A41.9 - Sepsis, unspecified organism Status: Acute Assessment and Plan: Present on admission and supported by leukocytosis with left shift and acute kidney injury. Lactic acid level was not drawn on arrival. Blood in urine cultures have been ordered and are pending. The patient's vital signs have been stable. Patient is on IV imipenem. (2) Urinary tract infection: Code(s): N39.0 - Urinary tract infection, site not specified Status: Acute Assessment and Plan: Continue ceftriaxone, pending urine culture. Culture showed patient has ESBL, antibiotic was switched to imipenem. (3) Hypoglycemia: Code(s): E16.2 - Hypoglycemia, unspecified Status: Acute Assessment and Plan: Resolved (4) Unwitnessed fall: Code(s): R29.6 - Repeated falls Status: Acute Assessment and Plan: Getting physical therapy now, walking better (5) Closed head injury: Code(s): S09.90XA - Unspecified injury of head, initial encounter Status: Acute Assessment and Plan: Stable (6) Decreased pedal pulses: Code(s): R09.89 - Other specified symptoms and signs involving the circulatory and respiratory systems Status: Acute Assessment and Plan: Decreased pedal pulses, left greater than right. No acute ischemia. (7) Chronic anticoagulation: Code(s): Z79.01 - long term (current) use of anticoagulants Status: Acute Assessment and Plan: Will monitor closely (8) Abnormal lung scan: Code(s): R94.2 - Abnormal results of pulmonary function studies Status: Acute Assessment and Plan: On antibiotic... (9) Paroxysmal atrial fibrillation: Code(s): I48.0 - Paroxysmal atrial fibrillation Status: Acute Assessment and Plan: Currently in a sinus rhythm. (10) Kidney failure: Code(s): N19 - Unspecified kidney failure Status: Acute Assessment and Plan: Documented history of chronic kidney disease however baseline creatinine is unknown. He does appear dry on exam and given elevated sodium will receive cautious IV hydration overnight. Records requested from his primary care provider for review. Renal ultrasound and urine electrolytes have been ordered. Avoid nephrotoxic agents. (11) Type 2 diabetes mellitus: Code(s): E11.9 - Type 2 diabetes mellitus without complications Status: Acute Assessment and Plan: Sugar is better now Additional Plan 06/11/2021 Patient sugar is better now. So low held shows possible aspiration if mechanical soft diet no used. Plan is to restart mechanical so tight with thickening. Monitor glucose closely. Repeat labs in the morning. 06/13/2021 Plan is to continue current treatment. Add p.o. metformin during controlled sugar better. Continue current treatment, increase activity. Patient has refused G-tube placement. Will schedule swallow eval for tomorrow morning. if stays okay will discharge home. 06/14/2021 Patient is clinically better. Getting IV meropenem for ESBL UTI, Infectious Disease on consult, discharge plan depends on IV recommendation about antibiotics. Subjective Date/time seen: 06/14/21 08:59 Patient is feeling slightly better. Had mild nausea last night but able to keep food down this morning. No shortness of breath or chest pain. Mood stable. Review of Systems Review of Systems: All systems reviewed & are unremarkable except as noted in HPI and below (the history and physical examination.) Exam Narrative: General: Frail, chronically ill-appearing male in the semi-Sargent position. Weight: 57 kg. BMI: 17.0. HEENT: Abrasions noted on the right mid forehead and on the bridge of the nose. PERRL, EOMI. Sclerae anicteric. Conjunctiva mildly injected. Dry mucous membranes. Poor dental hygiene. Oropharynx not visualized. Neck
--- NOTE | 2021-06-14 09:27 | PCSTNOTE ---
Please refer to the Modified Barium Swallow Evaluation in the EMR.
--- NOTE | 2021-06-14 09:36 | PC.NURSE ---
ID consult entered by Dr. Will. There is currently no ID coverage at [facility], therefore consult was cancelled. Dr. Will notified.
[2021-06-14] MEDS: SODIUM CHLORIDE 0.45% 1,000 ML 100 ML IV CONT ×2 (09:38→19:45)
[2021-06-14 09:48] VITALS: BP 127/66; PULSE 78; RESP 20; O2SAT 99
--- NOTE | 2021-06-14 10:51 | PCNFU ---
Nutrition Follow-Up Complete: Swallowing Difficulties as related to Dysphagia as evidenced by modified diet orders. Goal: Meet estimated nutritional needs Pt current nutrition is minced and moist level 5 with thickened liquids. Last recorded weight is 57 kg. Recommend re-weighing pt. prior to discharge. Bowel Motility: + BM 06/11/2021 Labs Reviewed: Glu 163 Meds Noted: Lipitor, Celexa, Ferrous Sulfate, Bisacodyl, Cozaar, Protonix, Glucophage, Toprol Xl, Insulin Skin: No skin breakdown at this time. WNL. Additional Notes: Went and checked in with patient. As far as his diet goes he is tolerating well with no issues, although he has been refusing several meals. Pt. is very weak and does not feel well. When asking what can be done to increase his oral intake he said absolutely nothing . Will continue closely monitoring oral intake. If intake continues to be suboptimal may want to consider advanced nutrition support to increase overall calories and protein. Will monitor every 3 days.
[2021-06-14 11:37] LABS: Glucose Point of Care 129 mg/dl (65-105)
--- NOTE | 2021-06-14 11:46 | PC.NURSE ---
Spoke with [facility] about patient living will, they stated they will fax it over.
--- NOTE | 2021-06-14 12:19 | WPDGICN ---
Assessment and Plan Assessment and plan (1) Oropharyngeal dysphagia: Code(s): R13.12 - Dysphagia, oropharyngeal phase Status: Acute Assessment and Plan: Patient with aspiration pneumonia. He has had several modified barium swallows which suggested is not safe for him to swallow. G-tube is been request by primary care service. patient agrees to this at present time. (2) Aspiration pneumonia: Code(s): J69.0 - Pneumonitis due to inhalation of food and vomit Status: Acute Assessment and Plan: Aspiration pneumonia peers related to his oropharyngeal dysphagia. Seems to remain at aspiration risk at this time. (3) Urinary tract infection: Code(s): N39.0 - Urinary tract infection, site not specified Status: Acute (4) Chronic anticoagulation: Code(s): Z79.01 - nursing home (current) use of anticoagulants Status: Acute Assessment and Plan: Anticoagulation will need to be held in anticipation PEG tube placement. (5) Paroxysmal atrial fibrillation: Code(s): I48.0 - Paroxysmal atrial fibrillation Status: Acute (6) Type 1 diabetes mellitus: Code(s): E10.9 - Type 1 diabetes mellitus without complications Status: Acute (7) Unwitnessed fall: Code(s): R29.6 - Repeated falls Status: Acute GI Consult Note Consult date/time: 06/14/21 12:20 HPI: Power Perez is a 70 year old male I am asked to see for placement of PEG tube. Patient with an underlying history of insulin-dependent diabetes, coronary artery disease, chronic kidney disease, paroxysmal atrial fibrillation. Was admitted on 06/10 after a fall. Previously had been at [facility]. Patient has a difficult historian. Previously on anticoagulation. After admission the hospital patient was found to have pneumonia. [place] to be secondary to aspiration. He has failed 2 modified barium swallows at this time. and now agrees to placement of a PEG tube for which I have been consulted. Patient currently is relatively poor historian. He continues to hacking cough difficulty was slightly an even during initial evaluation. Review of Systems Review of Systems: ROS unobtainable: Yes unobtainable due to mental status PMFSH Past Medical History Medical History (Updated 06/14/21 @ 12:23 by Donell Birmingham MD) Anemia Chronic anticoagulation Chronic kidney disease Coronary artery disease Depression with anxiety Hyperlipidemia Paroxysmal atrial fibrillation Type 2 diabetes mellitus Surgical History Surgical History (Updated 06/10/21 @ 21:22 by Pamela Briceno PA-C) History of coronary artery bypass graft Family History Family History Other Unknown family medical history Social History Social History (Updated 06/10/21 @ 21:23 by Pamela Briceno PA-C) Social History: Surrogate decision maker: MANUEL Mejía. Code status: Full code. Smoking status: Never smoker Alcohol intake: never Substance use: never Substance use type: does not use Additional living arrangements comments: Currently at [facility]. Essentially wheelchair-bound. Additional occupation/education comments: Retired. Spiritual care concerns: No Meds Home Medications and Allergies Home Medications Medication Instructions Recorded Confirmed Type acetaminophen 650 mg PO Q6H PRN 06/10/21 06/10/21 History aspirin 81 mg PO DAILY 06/10/21 06/10/21 History atorvastatin 80 mg PO HS 06/10/21 06/10/21 History benzonatate 100 mg PO TID PRN 06/10/21 06/10/21 History bisacodyl 5 mg PO DAILY PRN 06/10/21 06/10/21 History carboxymethylcellulose sodium 1 drp RIGHT EYE Q2H PRN 06/10/21 06/10/21 History [Artificial Tears ([facility])] citalopram 40 mg PO DAILY 06/10/21 06/10/21 History ferrous sulfate 325 mg PO DAILY 06/10/21 06/10/21 History furosemide 40 mg PO DAILY 06/10/21 06/10/21 History in
[2021-06-14 13:16] LABS: Basophils Percent Auto 0.2 % (0.2-1.2); Eosinophils Percent Auto 0.2 % (0-4.4); Hematocrit 39.9 % (42.0-52.0); Hemoglobin 12.6 g/dL (14.0-18.0); Immature Granulocyte Absolute 0.07 K/mm3 (0.00-0.031); Immature Granulocyte Percent A 1.1 % (0-0.5); Lymphocytes Absolute Auto 0.94 K/mm3 (0.9-3.2); Lymphocytes Percent Auto 15.1 % (18.3-44.2); Mean Corpuscular HGB Conc 31.6 g/dl (32-36); Mean Corpuscular Hemoglobin 28.7 pg (26-34); Mean Corpuscular Volume 90.9 fl (80-100); Mean Platelet Volume 11.2 fl (7.4-10.4); Monocytes Absolute Auto 0.3 K/mm3 (0.1-0.6); Monocytes Percent Auto 4.3 % (2.6-8.5); Neutrophils Absolute Auto 4.9 K/mm3 (1.3-6.7); Neutrophils Percent Auto 79.1 % (45.5-73.1); Platelet Count Result 266 k/mm3 (150-375); Red Blood Count 4.39 M/mm3 (4.6-6.20); Red Cell Distribution Width 15.8 % (11.5-14.5); White Blood Count 6.2 K/mm3 (4.5-10.0)
[2021-06-14 13:26] LABS: INR 1.7; Prothrombin Time 19.8 Seconds (11.1-14.7)
[2021-06-14 13:27] LABS: Partial Thromboplastin Time 33.3 SECONDS (22.3-36.8)
[2021-06-14 13:31] LABS: Anion Gap 7 mmol/L (8-16); Blood Urea Nitrogen 43 mg/dL (9-20); Calcium 9.5 mg/dL (8.4-10.2); Carbon Dioxide 31 mmol/L (22-30); Chloride 105 mmol/L (98-107); Estimated CRCL calculation 24 ml/min; Estimated Glomerular Filt Rate 30; Glucose 137 mg/dL (65-110); Potassium 3.8 mmol/L (3.4-5.0); Sodium 143 mmol/L (137-145)
[2021-06-14 14:00] VITALS: BP 160/80; PULSE 76; RESP 20; TEMP 36.8; O2SAT 100
[2021-06-14 17:28] LABS: Glucose Point of Care 74 mg/dl (65-105)
[2021-06-14 19:39] VITALS: BP 180/82; PULSE 76; RESP 18; TEMP 36.1; O2SAT 100
[2021-06-14 20:00] VITALS: PULSE 76; RESP 18; O2SAT 100
[2021-06-14] MEDS: DEXTROSE 50% 25 GM/50 ML SYRINGE IV PUSH (20:51)
[2021-06-14 21:59] LABS: Glucose Point of Care 64 mg/dl (65-105)
[2021-06-14 21:59] LABS: Glucose Point of Care 121 mg/dl (65-105)
[2021-06-15] VITALS (9 sets, daily range): BP systolic 106–195; BP diastolic 45–105; PULSE 70–130; RESP 14–20; TEMP 35.9–37.2; O2SAT 96–100
[2021-06-15] MEDS: SODIUM CHLORIDE 0.45% 1,000 ML 100 ML IV CONT (05:05)
[2021-06-15 05:08] LABS: Glucose Point of Care 129 mg/dl (65-105)
[2021-06-15] MEDS: hydrALAZINE HCL 20 MG/ML VIAL 10 MG IV PUSH (05:30)
[2021-06-15 06:26] LABS: Basophils Percent Auto 0.2 % (0.2-1.2); Eosinophils Percent Auto 0.1 % (0-4.4); Hematocrit 40.6 % (42.0-52.0); Hemoglobin 12.8 g/dL (14.0-18.0); Immature Granulocyte Absolute 0.11 K/mm3 (0.00-0.031); Immature Granulocyte Percent A 1.4 % (0-0.5); Lymphocytes Percent Auto 11.2 % (18.3-44.2); Mean Corpuscular HGB Conc 31.5 g/dl (32-36); Mean Corpuscular Volume 91.9 fl (80-100); Mean Platelet Volume 11.5 fl (7.4-10.4); Monocytes Absolute Auto 0.5 K/mm3 (0.1-0.6); Monocytes Percent Auto 5.6 % (2.6-8.5); Neutrophils Absolute Auto 6.5 K/mm3 (1.3-6.7); Neutrophils Percent Auto 81.5 % (45.5-73.1); Platelet Count Result 246 k/mm3 (150-375); Red Blood Count 4.42 M/mm3 (4.6-6.20); Red Cell Distribution Width 15.9 % (11.5-14.5)
[2021-06-15 06:35] LABS: INR 1.6; Prothrombin Time 18.9 Seconds (11.1-14.7)
[2021-06-15 06:59] LABS: Alanine Aminotransferase 15 U/L (4-50); Albumin Level 3.4 g/dL (3.5-5.1); Alkaline Phosphatase 105 U/L (38-126); Anion Gap 3 mmol/L (8-16); Aspartate Amino Transferase 23 U/L (17-59); Bilirubin,Total 0.5 mg/dL (0.2-1.3); Blood Urea Nitrogen 34 mg/dL (9-20); Carbon Dioxide 28 mmol/L (22-30); Chloride 111 mmol/L (98-107); Estimated CRCL calculation 27 ml/min; Estimated Glomerular Filt Rate 35; Glucose 143 mg/dL (65-110); Potassium 3.6 mmol/L (3.4-5.0); Sodium 142 mmol/L (137-145)
[2021-06-15 07:53] LABS: Glucose Point of Care 163 mg/dl (65-105)
[2021-06-15] MEDS: PANTOPRAZOLE SODIUM IV 40 MG VIAL IV PUSH (08:45)
[2021-06-15] MEDS: METOPROLOL SUCCINATE EXT REL 50 MG TABCR PO (08:45)
[2021-06-15 09:30] LABS: Glucose Point of Care 179 mg/dl (65-105)
[2021-06-15] MEDS: LACTATED RINGERS 1,000 ML 150 ML IV CONT (09:58)
--- NOTE | 2021-06-15 10:22 | PM.IMPN ---
Progress Note: A&P Assessment and Plan (1) Sepsis: Code(s): A41.9 - Sepsis, unspecified organism Status: Acute Assessment and Plan: Present on admission and supported by leukocytosis with left shift and acute kidney injury. Lactic acid level was not drawn on arrival. Blood in urine cultures have been ordered and are pending. The patient's vital signs have been stable. Patient is on IV imipenem. (2) Urinary tract infection: Code(s): N39.0 - Urinary tract infection, site not specified Status: Acute Assessment and Plan: Continue ceftriaxone, pending urine culture. Culture showed patient has ESBL, antibiotic was switched to imipenem. (3) Hypoglycemia: Code(s): E16.2 - Hypoglycemia, unspecified Status: Acute Assessment and Plan: Resolved (4) Unwitnessed fall: Code(s): R29.6 - Repeated falls Status: Acute Assessment and Plan: Getting physical therapy now, walking better (5) Closed head injury: Code(s): S09.90XA - Unspecified injury of head, initial encounter Status: Acute Assessment and Plan: Stable (6) Decreased pedal pulses: Code(s): R09.89 - Other specified symptoms and signs involving the circulatory and respiratory systems Status: Acute Assessment and Plan: Decreased pedal pulses, left greater than right. No acute ischemia. 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 (9) Paroxysmal atrial fibrillation: Code(s): I48.0 - Paroxysmal atrial fibrillation Status: Acute Assessment and Plan: Currently in a sinus rhythm. (10) Kidney failure: Code(s): N19 - Unspecified kidney failure Status: Acute Assessment and Plan: Documented history of chronic kidney disease however baseline creatinine is unknown. He does appear dry on exam and given elevated sodium will receive cautious IV hydration overnight. Records requested from his primary care provider for review. Renal ultrasound and urine electrolytes have been ordered. Avoid nephrotoxic agents. (11) Type 2 diabetes mellitus: Code(s): E11.9 - Type 2 diabetes mellitus without complications Status: Acute Assessment and Plan: Sugar is better now Additional Plan 06/11/2021 Patient sugar is better now. So low held shows possible aspiration if mechanical soft diet no used. Plan is to restart mechanical so tight with thickening. Monitor glucose closely. Repeat labs in the morning. 06/13/2021 Plan is to continue current treatment. Add p.o. metformin during controlled sugar better. Continue current treatment, increase activity. Patient has refused G-tube placement. Will schedule swallow eval for tomorrow morning. if stays okay will discharge home. 06/14/2021 Patient is clinically better. Getting IV meropenem for ESBL UTI, Infectious Disease on consult, discharge plan depends on IV recommendation about antibiotics. 06/15/2021 Patient is scheduled for G-tube placement today. For ESBL UTI will continue IV antibiotic. Possible discharge on . Subjective Date/time seen: 06/15/21 10:22 Patient was seen during the morning rounds today. No new overnight complaints. No shortness of breath chest pain. No abdominal pain, nausea vomiting,. Mood stable. Review of Systems Review of Systems: All systems reviewed & are unremarkable except as noted in HPI and below (the history and physical examination.) Exam Narrative: General: Frail, chronically ill-appearing male in the semi-Sargent position. Weight: 57 kg. BMI: 17.0. HEENT: Abrasions noted on the right mid forehead and on the bridge of
--- NOTE | 2021-06-15 10:29 | WPDANESEPPF ---
Anes - Initial Pre Proc Eval Procedure: Operation Date: 06/15/21 10:45 Proposed Procedures p Percutaneous Endoscopic Gastrostomy - Donell Birmingham MD Date/Time: 06/15/21 10:29 Surgeon: Thomas Castro MD Pre Op Diagnosis: unwitnessed fall,kidney failure,pneumonia,uti,hypo Patient Data Age: 70 Gender: M Height: 1.83 m Weight: 57 kg Last Vital Signs Temp 37.2 C 06/15/21 09:34 Pulse 92 06/15/21 09:34 Resp 18 06/15/21 09:34 BP 165/81 H 06/15/21 09:34 Pulse Ox 99 06/15/21 09:34 Allergies Allergy/AdvReac Type Severity Reaction Status Date / Time amoxicillin Allergy Unknown Unknown Verified 06/10/21 18:44 clavulanic acid Allergy Unknown Verified 06/10/21 18:44 [From Augmentin] insulin detemir Allergy Unknown Verified 06/10/21 18:44 venlafaxine Allergy Unknown Verified 06/10/21 18:44 Home Medications Medication Instructions Recorded Confirmed Type acetaminophen 650 mg PO Q6H PRN 06/10/21 06/10/21 History aspirin 81 mg PO DAILY 06/10/21 06/10/21 History atorvastatin 80 mg PO HS 06/10/21 06/10/21 History benzonatate 100 mg PO TID PRN 06/10/21 06/10/21 History bisacodyl 5 mg PO DAILY PRN 06/10/21 06/10/21 History carboxymethylcellulose sodium 1 drp RIGHT EYE Q2H PRN 06/10/21 06/10/21 History [Artificial Tears ([facility])] citalopram 40 mg PO DAILY 06/10/21 06/10/21 History ferrous sulfate 325 mg PO DAILY 06/10/21 06/10/21 History furosemide 40 mg PO DAILY 06/10/21 06/10/21 History insulin lispro 3 unit SUBCUT TIDWM 06/10/21 06/10/21 History insulin lispro See Rx Instructions .ROUTE .COMPLEX 06/10/21 06/10/21 History metoprolol succinate 50 mg PO DAILY 06/10/21 06/10/21 History ondansetron [Zofran ODT] 4 mg PO TID PRN 06/10/21 06/10/21 History polyethylene glycol 3350 17 g PO DAILY PRN 06/10/21 06/10/21 History potassium chloride 20 meq PO DAILY 06/10/21 06/10/21 History sennosides-docusate sodium 1 tablet PO BID 06/10/21 06/10/21 History [Senna-S] warfarin [Jantoven] 5 mg PO DAILY 06/10/21 06/10/21 History Laboratory Tests 06/14/21 06/14/21 06/14/21 11:32 12:56 12:57 WBC 6.2 K/mm3 K/mm3 (4.5-10.0) RBC 4.39 M/mm3 L M/mm3 (4.6-6.20) Hgb 12.6 g/dL L g/dL (14.0-18.0) Hct 39.9 % L % (42.0-52.0) MCV 90.9 fl fl (80-100) MCH 28.7 pg pg (26-34) MCHC 31.6 g/dl L g/dl (32-36) RDW 15.8 % H % (11.5-14.5) Plt Count 266 k/mm3 k/mm3 (150-375) MPV 11.2 fl H fl (7.4-10.4) Immature Gran % (Auto) 1.1 % H % (0-0.5) Neut % (Auto) 79.1 % H % (45.5-73.1) Lymph % (Auto) 15.1 % L % (18.3-44.2) [place] % (Auto) 4.3 % % (2.6-8.5) Eos % (Auto) 0.2 % % (0-4.4) Baso % (Auto) 0.2 % % (0.2-1.2) Lymph # (Auto) 0.94 K/mm3 K/mm3 (0.9-3.2) [place] # (Auto) 0.3 K/mm3 K/mm3 (0.1-0.6) Eos # (Auto) 0.0 K/mm3 K/mm3 (0-0.3) Baso # (Auto) 0.0 K/mm3 K/mm3 (0.0-0.1) Abs Immat Gran (auto) 0.07 K/mm3 H K/mm3 (0.00-0.031) Absolute Neuts (auto) 4.9 K/mm3 K/mm3 (1.3-6.7) Absolute Nucleated RBC 0.0 K/mm3 K/mm3 (0.0-0.012) Nucleated RBC % 0.0 % % (0.0-0.2) PT 19.8 Seconds H Seconds (11.1-14.7) INR 1.7 APTT 33.3 SECONDS SECONDS (22.3-36.8) Sodium Potassium Chloride Carbon Dioxide Anion Gap BUN Creatinine Estim Creat Clear Calc Estimated GFR Glucose POC Capillary Glucose 129 mg/dl H mg/dl (65-105) Calcium Total Bilirubin AST ALT Alkaline Phosphatase Total Protein Albumin 06/14/21 06/14/21 06/14/21 12:57 17:26 20:44 WBC RBC Hgb Hct MCV
[2021-06-15] MEDS: ONDANSETRON INJ 4 MG/2 ML VIAL IV PUSH (10:41)
[2021-06-15] MEDS: BENZOCAINE (*SP) 60 ML SPRAY CAN (HURRICAINE) 1 SPRAY MUCOUS MEM (10:54)
[2021-06-15 11:34] LABS: Glucose Point of Care 182 mg/dl (65-105)
--- NOTE | 2021-06-15 13:30 | PCNFU ---
Nutrition Follow-Up Complete: Swallowing Difficulites as related to Dysphagia as evidenced by modified diet orders. Goal: Meet estimanted nutritional needs Pt not progressing towards goal. Pt current nutrition is NPO. Last recorded weight is 57 kg. Bowel Motility: No new BM reported. Last BM unknown. Labs Reviewed: hgb 12.8, hct 40.6, Alb 3.4, GFR 35, BUN 34, Cr 1.90, Glu 182 Meds Noted: apresoline, toprol, protonix Skin: right elbow skin tear Additional Notes: RDN consulted to make recommendations for tube feeding. Per EMR, pt had PEG placed, nursing confirms PEG placement. RDN placed orders for tube feeding diet of Glucerna 1.2 running at 20mL/hr over 22 hours providing 528kcal, 26g protein, 354mL of water. Nursing has been informed. Recommendations for tube feeding rate to advance by 20mL/hr q 4 hours as tolerated by pt until goal rate of 60mL/hr is met. Goal rate of Glucerna 1.2 running at 60mL/hr over 22 hours will provide 1584kcal, 80g of protein, and 1063mL of water, meeting 83% of kcal needs and 100% of protein needs. Agree with diet order at this time. Will continue to follow. Will monitor every T/F
--- NOTE | 2021-06-15 14:15 | PC.NURSE ---
Per GI lab intern from Dr. Birmingham- start tube feeding at half the rate put in (30 mls), do not advance by more than 30 ml/hr in a day. Will start pt at 15 ml/hr and will advance every 4 hours by 5 ml/hr
[2021-06-15 17:04] LABS: Glucose Point of Care 212 mg/dl (65-105)
[2021-06-15] MEDS: INSULIN HUMAN NPH (*BKC) 100 UNITS/ML 12 UNITS SUB-Q (18:02)
[2021-06-15] MEDS: INSULIN HUMAN REGULAR (*BKC) 100 UNITS/ML SUB-Q (18:03)
[2021-06-15 18:32] LABS: Osmolality, Urine 420 mOsm/kg (50-1200)
[2021-06-15] MEDS: ATORVASTATIN 40 MG TABLET 80 MG PO (21:18)
[2021-06-15 23:30] LABS: Glucose Point of Care 115 mg/dl (65-105)
[2021-06-16] MEDS: SODIUM CHLORIDE 0.45% 1,000 ML 100 ML IV CONT ×3 (00:25→22:55)
[2021-06-16 06:05] VITALS: BP 184/81; PULSE 84; RESP 26; TEMP 36.2; O2SAT 100
[2021-06-16 06:14] LABS: Glucose Point of Care 145 mg/dl (65-105)
[2021-06-16] MEDS: INSULIN HUMAN NPH (*BKC) 100 UNITS/ML 12 UNITS SUB-Q (06:42)
[2021-06-16 06:45] LABS: Alanine Aminotransferase 15 U/L (4-50); Albumin Level 3.2 g/dL (3.5-5.1); Alkaline Phosphatase 93 U/L (38-126); Anion Gap 5 mmol/L (8-16); Aspartate Amino Transferase 23 U/L (17-59); Bilirubin,Total 0.5 mg/dL (0.2-1.3); Blood Urea Nitrogen 33 mg/dL (9-20); Calcium 8.9 mg/dL (8.4-10.2); Carbon Dioxide 30 mmol/L (22-30); Chloride 110 mmol/L (98-107); Estimated CRCL calculation 26 ml/min; Estimated Glomerular Filt Rate 33; Glucose 149 mg/dL (65-110); Potassium 3.7 mmol/L (3.4-5.0); Sodium 145 mmol/L (137-145)
[2021-06-16 07:15] LABS: INR 1.6; Prothrombin Time 18.9 Seconds (11.1-14.7)
[2021-06-16] MEDS: FERROUS SULFATE 324 MG TABLET PO (09:41)
[2021-06-16] MEDS: PANTOPRAZOLE SODIUM IV 40 MG VIAL IV PUSH (09:41)
[2021-06-16] MEDS: LOSARTAN POTASSIUM 50 MG TABLET PO (09:41)
[2021-06-16] MEDS: CITALOPRAM HYDROBROMIDE 10 MG TABLET 40 MG PO (09:41)
[2021-06-16 09:42] VITALS: PULSE 76
[2021-06-16] MEDS: METOPROLOL TARTRATE 25 MG TABLET FEED TUBE ×2 (09:42→20:22)
--- NOTE | 2021-06-16 10:22 | WPDANESPN ---
Anes - Prog Note Post-Op Date/Time: 06/16/21 10:22 Cardiovascular status: normal Respiratory status: normal Airway patency: baseline Mental status: baseline Post-Op hydration status: normal Vital Signs: Last Vital Signs Temp 36.2 C L 06/16/21 06:05 Pulse 76 06/16/21 09:42 Resp 26 H 06/16/21 06:05 BP 184/81 H 06/16/21 06:05 Pulse Ox 100 06/16/21 06:05 Pain Score (VAS): 0 I/O: Intake & Output 06/15/21 06/16/21 06/16/21 23:59 07:59 15:59 Intake Total 1100 510 Balance 1100 510 Laboratory Tests 06/15/21 05:51 06/16/21 06:20 06/11/21 06/15/21 06/15/21 13:33 11:32 16:31 PT INR Sodium Potassium Chloride Carbon Dioxide Anion Gap BUN Creatinine Estim Creat Clear Calc Estimated GFR Glucose POC Capillary Glucose 182 H 212 H Calcium Total Bilirubin AST ALT Alkaline Phosphatase Total Protein Albumin Urine Osmolality 420 06/15/21 06/16/21 06/16/21 23:27 06:12 06:20 PT INR Sodium 145 Potassium 3.7 Chloride 110 H Carbon Dioxide 30 Anion Gap 5 L BUN 33 H Creatinine 2.00 H Estim Creat Clear Calc 26 Estimated GFR 33 L Glucose 149 H POC Capillary Glucose 115 H 145 H Calcium 8.9 Total Bilirubin 0.5 AST 23 ALT 15 Alkaline Phosphatase 93 Total Protein 6.0 L Albumin 3.2 L Urine Osmolality 06/16/21 06:20 PT 18.9 H INR 1.6 Sodium Potassium Chloride Carbon Dioxide Anion Gap BUN Creatinine Estim Creat Clear Calc Estimated GFR Glucose POC Capillary Glucose Calcium Total Bilirubin AST ALT Alkaline Phosphatase Total Protein Albumin Urine Osmolality Microbiology 06/10/21 19:40 Blood Blood Culture - Final 06/10/21 19:41 Blood Blood Culture - Final 06/13/21 17:52 Urine-Clean Catch Urine Culture - Preliminary Escherichia Coli Post-procedural complaints: none Patient Feedback: Patient satisfied with anesthetic care.
[2021-06-16 12:00] LABS: Glucose Point of Care 79 mg/dl (65-105)
--- NOTE | 2021-06-16 12:23 | WPDGIPROGNO ---
Progress Note: A&P Assessment and Plan (1) PEG (percutaneous endoscopic gastrostomy) status: Code(s): Z93.1 - Gastrostomy status Status: Acute Assessment and Plan: Patient tolerating PEG tube feedings 1 day after PEG placement. Plan to increase tube feedings to60cc/hour. Any further increases per primary care service. Continue local care to PEG site with Betadine or hydrogen peroxide on a daily basis. Subjective Date/time seen: 06/16/21 12:23 Patient alert clinically unchanged. Denies any significant abdominal pain after PEG yesterday. Now tolerating tube feedings at a slow rate. Review of Systems Review of Systems: All systems reviewed & are unremarkable except as noted in HPI and below Exam Narrative: Abdomen soft. Bowel sounds are present tube peg tube site appears to be healing adequately. No significant tenderness at this time. Objective Data Vital Signs Vital Signs: Vital Signs - 24 hr 06/15/21 21:20 06/15/21 21:24 06/16/21 06:05 Temperature 97.5 F L 97.2 F L Pulse Rate 91 84 Respiratory Rate 16 20 26 H Blood Pressure 164/88 H 184/81 H Pulse Oximetry 98 99 100 06/16/21 09:42 Temperature Pulse Rate 76 Respiratory Rate Blood Pressure Pulse Oximetry Intake/Output Intake/Output: Intake & Output 06/13/21 06/14/21 06/15/21 06/16/21 23:59 23:59 23:59 23:59 Intake Total 350 1550 5373 1510 Balance 350 1550 5373 1510 Meds/Results Medications: Active Medications Generic Name Dose Route Start Last Admin Trade Name Freq PRN Reason Stop Dose Admin Acetaminophen 650 mg 06/10/21 21:47 Acetaminophen 325 Mg Tablet PO Q6H PRN Pain Rated 1-3 Artificial Tears 1 drop 06/10/21 21:47 Artificial Tears Ophth Soln 15 Ml Bottle RIGHT EYE Q2H PRN blood shot eye Aspirin 81 mg 06/17/21 08:00 Aspirin 81 Mg Chewable Tablet FEED TUBE DAILY@0800 RONAL Atorvastatin Calcium 80 mg 06/10/21 22:05 06/15/21 21:18 Atorvastatin 40 Mg Tablet PO 80 mg HS RONAL Administration Benzonatate 100 mg 06/10/21 21:47 06/14/21 08:23 Benzonatate 100 Mg Capsule PO 100 mg TID PRN Administration Cough Bisacodyl 5 mg 06/10/21 21:47 Bisacodyl 5 Mg Tablet Ec PO DAILY PRN Constipation Citalopram Hydrobromide 40 mg 06/11/21 09:00 06/16/21 09:41 Citalopram Hydrobromide 10 Mg Tablet PO 40 mg DAILY RONAL Administration Dextrose 12.5 gm 06/10/21 15:57 06/14/21 20:51 Dextrose 50% 25 Gm/50 Ml Syringe IV PUSH 12.5 gm PRN PRN Administration Hypoglycemia Protocol Ferrous Sulfate 324 mg 06/11/21 08:00 06/16/21 09:41 Ferrous Sulfate 324 Mg Tablet PO 324 mg DAILY@0800 RONAL Administration Glucagon 1 mg 06/10/21 15:57 Glucagon For Inj 1 Mg Vial IM PRN PRN Hypoglycemia Protocol Glucose 15 gm 06/10/21 15:57 Glucose Oral Gel 15 Gm Of Glucse In 37.5 Gm Tube PO PRN PRN Hypoglycemia Protocol Hydralazine HCl 10 mg 06/12/21 22:26 06/15/21 05:30 Hydralazine Hcl 20 Mg/Ml Vial IV PUSH 10 mg Q6H PRN Administration SBP > 165 or DBP > 105 Dextrose 1,000 mls @ 50 mls/hr 06/10/21 15:57 Dextrose 5% 1,000 Ml IVPB PRN PRN Hypoglycemia Protocol Imipenem/Cilastatin Sodium 250 100 mls @ 300 mls/hr 06/13/21 12:00 06/16/21 12:09 mg/ Sodium Chloride IVPB 200 mls/hr Q6HR RONAL Administration Sodium Chloride 1,000 mls @ 100 mls/hr 06/14/21 09:00 06/16/21 12:15 Sodium Chloride 0.45% IV CONT 100 mls/hr .Q10H RONAL Administration Insulin Human NPH 12 units 06/13/21 06:00 06/16/21 06:42 Insulin Human Nph (*Bkc) 100 Units/Ml SUB-Q 12 units BIDAC RONAL Administration Insulin Human Regular 0 units 06/13/21 11:37 06/16/21 12:09 Insulin Human Regular (*Bkc) 100 Units/Ml SUB-Q Not Given TIDWM RONAL Protocol Losartan Potassium 50 mg 06/11/21 16:39 06/16/21 09:41 Losartan Potassium 50 Mg Tablet PO 50
--- NOTE | 2021-06-16 12:28 | PM.IMPN ---
Progress Note: A&P Assessment and Plan (1) Sepsis: Code(s): A41.9 - Sepsis, unspecified organism Status: Acute Assessment and Plan: Present on admission and supported by leukocytosis with left shift and acute kidney injury. Lactic acid level was not drawn on arrival. Blood in urine cultures have been ordered and are pending. The patient's vital signs have been stable. Patient is on IV imipenem. (2) Urinary tract infection: Code(s): N39.0 - Urinary tract infection, site not specified Status: Acute Assessment and Plan: Continue ceftriaxone, pending urine culture. Culture showed patient has ESBL, antibiotic was switched to imipenem. (3) Hypoglycemia: Code(s): E16.2 - Hypoglycemia, unspecified Status: Acute Assessment and Plan: Resolved (4) Unwitnessed fall: Code(s): R29.6 - Repeated falls Status: Acute Assessment and Plan: Getting physical therapy now, walking better (5) Closed head injury: Code(s): S09.90XA - Unspecified injury of head, initial encounter Status: Acute Assessment and Plan: Stable (6) Decreased pedal pulses: Code(s): R09.89 - Other specified symptoms and signs involving the circulatory and respiratory systems Status: Acute Assessment and Plan: Decreased pedal pulses, left greater than right. No acute ischemia. 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 (9) Paroxysmal atrial fibrillation: Code(s): I48.0 - Paroxysmal atrial fibrillation Status: Acute Assessment and Plan: Currently in a sinus rhythm. (10) Kidney failure: Code(s): N19 - Unspecified kidney failure Status: Acute Assessment and Plan: Documented history of chronic kidney disease however baseline creatinine is unknown. He does appear dry on exam and given elevated sodium will receive cautious IV hydration overnight. Records requested from his primary care provider for review. Renal ultrasound and urine electrolytes have been ordered. Avoid nephrotoxic agents. (11) Type 2 diabetes mellitus: Code(s): E11.9 - Type 2 diabetes mellitus without complications Status: Acute Assessment and Plan: Sugar is better now Additional Plan 06/11/2021 Patient sugar is better now. So low held shows possible aspiration if mechanical soft diet no used. Plan is to restart mechanical so tight with thickening. Monitor glucose closely. Repeat labs in the morning. 06/13/2021 Plan is to continue current treatment. Add p.o. metformin during controlled sugar better. Continue current treatment, increase activity. Patient has refused G-tube placement. Will schedule swallow eval for tomorrow morning. if stays okay will discharge home. 06/14/2021 Patient is clinically better. Getting IV meropenem for ESBL UTI, Infectious Disease on consult, discharge plan depends on IV recommendation about antibiotics. 06/15/2021 Patient is scheduled for G-tube placement today. For ESBL UTI will continue IV antibiotic. Possible discharge on . 06/16/2021 Patient started G-tube placed yesterday. Will start feeding today if tolerates this well will discharge to detention tomorrow. Subjective Date/time seen: 06/16/21 12:28 Patient was seen during the morning rounds today. Got G-tube placed yesterday. No chest pain, no to shortness of breath. No abdominal pain, nausea, no vomiting. Mood stable Review of Systems Review of Systems: All systems reviewed & are unremarkable except as noted in HPI and below (the history and physical examination.) Exam Narrative: General: Frail, chr
[2021-06-16 14:00] VITALS: BP 182/98; PULSE 77; RESP 16; TEMP 36.8; O2SAT 99
[2021-06-16] MEDS: DEXTROSE 50% 25 GM/50 ML SYRINGE IV PUSH (16:56)
[2021-06-16 17:01] LABS: Glucose Point of Care 43 mg/dl (65-105)
[2021-06-16 17:16] LABS: Glucose Point of Care 89 mg/dl (65-105)
[2021-06-16] MEDS: WARFARIN (*PBKC) 3 MG TABLET PO (18:34)
[2021-06-16 20:00] VITALS: PULSE 77; RESP 16; O2SAT 99
[2021-06-16 20:07] LABS: Glucose Point of Care 57 mg/dl (65-105)
[2021-06-16 20:22] VITALS: PULSE 77
[2021-06-16] MEDS: ATORVASTATIN 40 MG TABLET 80 MG PO (20:22)
[2021-06-16 21:23] LABS: Glucose Point of Care 124 mg/dl (65-105)
[2021-06-16] MEDS: hydrALAZINE HCL 20 MG/ML VIAL 10 MG IV PUSH (23:52)
[2021-06-16 23:58] VITALS: BP 179/85
[2021-06-17 05:29] VITALS: BP 161/70; PULSE 71; RESP 20; TEMP 36.1; O2SAT 98
[2021-06-17 06:25] LABS: Glucose Point of Care 145 mg/dl (65-105)
[2021-06-17 07:12] LABS: INR 1.3; Prothrombin Time 15.8 Seconds (11.1-14.7)
[2021-06-17 08:16] VITALS: O2SAT 98
[2021-06-17] MEDS: INSULIN HUMAN NPH (*BKC) 100 UNITS/ML 12 UNITS SUB-Q (08:22)
[2021-06-17] MEDS: CITALOPRAM HYDROBROMIDE 10 MG TABLET 40 MG PO (08:23)
[2021-06-17] MEDS: LOSARTAN POTASSIUM 50 MG TABLET PO (08:23)
[2021-06-17] MEDS: METOPROLOL TARTRATE 25 MG TABLET FEED TUBE ×2 (08:23→20:19)
[2021-06-17] MEDS: FERROUS SULFATE 324 MG TABLET PO (08:23)
[2021-06-17] MEDS: PANTOPRAZOLE SODIUM IV 40 MG VIAL IV PUSH (08:24)
[2021-06-17 08:47] LABS: Glucose Point of Care 161 mg/dl (65-105)
[2021-06-17] MEDS: SODIUM CHLORIDE 0.45% 1,000 ML 100 ML IV CONT ×2 (10:21→20:22)
[2021-06-17] MEDS: ASPIRIN 81 MG CHEWABLE TABLET FEED TUBE (10:21)
--- NOTE | 2021-06-17 10:34 | PM.IMPN ---
Progress Note: A&P Assessment and Plan (1) Sepsis: Code(s): A41.9 - Sepsis, unspecified organism Status: Acute Assessment and Plan: Present on admission and supported by leukocytosis with left shift and acute kidney injury. Lactic acid level was not drawn on arrival. Blood in urine cultures have been ordered and are pending. The patient's vital signs have been stable. Patient is on IV imipenem. (2) Urinary tract infection: Code(s): N39.0 - Urinary tract infection, site not specified Status: Acute Assessment and Plan: Continue ceftriaxone, pending urine culture. Culture showed patient has ESBL, antibiotic was switched to imipenem. (3) Hypoglycemia: Code(s): E16.2 - Hypoglycemia, unspecified Status: Acute Assessment and Plan: Resolved (4) Unwitnessed fall: Code(s): R29.6 - Repeated falls Status: Acute Assessment and Plan: Getting physical therapy now, walking better (5) Closed head injury: Code(s): S09.90XA - Unspecified injury of head, initial encounter Status: Acute Assessment and Plan: Stable (6) Decreased pedal pulses: Code(s): R09.89 - Other specified symptoms and signs involving the circulatory and respiratory systems Status: Acute Assessment and Plan: Decreased pedal pulses, left greater than right. No acute ischemia. 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 (9) Paroxysmal atrial fibrillation: Code(s): I48.0 - Paroxysmal atrial fibrillation Status: Acute Assessment and Plan: Currently in a sinus rhythm. (10) Kidney failure: Code(s): N19 - Unspecified kidney failure Status: Acute Assessment and Plan: Documented history of chronic kidney disease however baseline creatinine is unknown. He does appear dry on exam and given elevated sodium will receive cautious IV hydration overnight. Records requested from his primary care provider for review. Renal ultrasound and urine electrolytes have been ordered. Avoid nephrotoxic agents. (11) Type 2 diabetes mellitus: Code(s): E11.9 - Type 2 diabetes mellitus without complications Status: Acute Assessment and Plan: Sugar is better now Additional Plan 06/11/2021 Patient sugar is better now. So low held shows possible aspiration if mechanical soft diet no used. Plan is to restart mechanical so tight with thickening. Monitor glucose closely. Repeat labs in the morning. 06/13/2021 Plan is to continue current treatment. Add p.o. metformin during controlled sugar better. Continue current treatment, increase activity. Patient has refused G-tube placement. Will schedule swallow eval for tomorrow morning. if stays okay will discharge home. 06/14/2021 Patient is clinically better. Getting IV meropenem for ESBL UTI, Infectious Disease on consult, discharge plan depends on IV recommendation about antibiotics. 06/15/2021 Patient is scheduled for G-tube placement today. For ESBL UTI will continue IV antibiotic. Possible discharge on . 06/16/2021 Patient started G-tube placed yesterday. Will start feeding today. 06/17/2021 Patient is clinically improving. Plan is to continue ESBL treatment for total of 7 days. Patient finished antibiotics Monday, can be discharged back intermediate on Monday. Will continue with G-tube feeding at present time. Subjective Date/time seen: 06/17/21 10:34 Patient was seen during the morning rounds today. Patient has slight extension of G-tube feeding today. Otherwise feeling better, no shortness of breath or chest pain. No abdominal pain no nausea
[2021-06-17 11:53] LABS: Glucose Point of Care 157 mg/dl (65-105)
[2021-06-17 15:08] VITALS: BP 136/94; PULSE 64; RESP 18; TEMP 36.6; O2SAT 100
[2021-06-17] MEDS: DEXTROSE 50% 25 GM/50 ML SYRINGE IV PUSH (18:07)
[2021-06-17 18:08] LABS: Glucose Point of Care 49 mg/dl (65-105)
[2021-06-17] MEDS: WARFARIN (*PBKC) 5 MG TABLET FEED TUBE (18:15)
[2021-06-17] MEDS: METOCLOPRAMIDE HCL INJ 10 MG/2 ML VIAL IV PUSH (18:28)
[2021-06-17 18:34] LABS: Glucose Point of Care 105 mg/dl (65-105)
[2021-06-17 19:57] LABS: Chloride Rand Ur 26 mmol/L (32-290); Chloride/Creatinine Rand Ur 31 (23-275); Creatinine Random Urine 84 mg/dL (20-320)
[2021-06-17 20:00] VITALS: PULSE 62; RESP 18; O2SAT 98
[2021-06-17 20:19] VITALS: PULSE 64
[2021-06-17] MEDS: ATORVASTATIN 40 MG TABLET 80 MG FEED TUBE (20:19)
[2021-06-17 21:15] VITALS: BP 156/76; PULSE 62; RESP 18; TEMP 36.6; O2SAT 98
[2021-06-17 21:25] LABS: Glucose Point of Care 53 mg/dl (65-105)
[2021-06-17 22:18] LABS: Glucose Point of Care 75 mg/dl (65-105)
[2021-06-17] MEDS: GLUCOSE ORAL GEL 15 GM OF GLUCSE IN 37.5 GM TUBE FEED TUBE (23:47)
[2021-06-18 00:24] LABS: Glucose Point of Care 62 mg/dl (65-105)
[2021-06-18] MEDS: INSULIN HUMAN NPH (*BKC) 100 UNITS/ML SUB-Q ×2 (05:48→16:53)
[2021-06-18 05:50] VITALS: BP 166/81; PULSE 58; RESP 18; TEMP 36.2; O2SAT 95
[2021-06-18 06:04] LABS: INR 1.2; Prothrombin Time 15.4 Seconds (11.1-14.7)
[2021-06-18 06:09] LABS: Glucose Point of Care 165 mg/dl (65-105)
[2021-06-18] MEDS: METOCLOPRAMIDE HCL INJ 10 MG/2 ML VIAL IV PUSH ×3 (06:32→20:06)
[2021-06-18] MEDS: hydrALAZINE HCL 20 MG/ML VIAL 10 MG IV PUSH (06:32)
[2021-06-18 08:41] VITALS: PULSE 82
[2021-06-18] MEDS: LOSARTAN POTASSIUM 50 MG TABLET FEED TUBE (08:41)
[2021-06-18] MEDS: FERROUS SULFATE LIQUID 325 MG/7.4 ML ELIXIR FEED TUBE (08:41)
[2021-06-18] MEDS: PANTOPRAZOLE SODIUM IV 40 MG VIAL IV PUSH (08:41)
[2021-06-18] MEDS: ASPIRIN 81 MG CHEWABLE TABLET FEED TUBE (08:41)
[2021-06-18] MEDS: METOPROLOL TARTRATE 25 MG TABLET FEED TUBE ×2 (08:41→19:47)
[2021-06-18 08:52] LABS: Glucose Point of Care 201 mg/dl (65-105)
[2021-06-18] MEDS: INSULIN HUMAN REGULAR (*BKC) 100 UNITS/ML SUB-Q (08:55)
--- NOTE | 2021-06-18 10:47 | PM.IMPN ---
Progress Note: A&P Assessment and Plan (1) Sepsis: Code(s): A41.9 - Sepsis, unspecified organism Status: Acute Assessment and Plan: Present on admission and supported by leukocytosis with left shift and acute kidney injury. Lactic acid level was not drawn on arrival. Blood in urine cultures have been ordered and are pending. The patient's vital signs have been stable. Patient is on IV imipenem. (2) Urinary tract infection: Code(s): N39.0 - Urinary tract infection, site not specified Status: Acute Assessment and Plan: Continue ceftriaxone, pending urine culture. Culture showed patient has ESBL, antibiotic was switched to imipenem. (3) Hypoglycemia: Code(s): E16.2 - Hypoglycemia, unspecified Status: Acute Assessment and Plan: Resolved (4) Unwitnessed fall: Code(s): R29.6 - Repeated falls Status: Acute Assessment and Plan: Getting physical therapy now, walking better (5) Closed head injury: Code(s): S09.90XA - Unspecified injury of head, initial encounter Status: Acute Assessment and Plan: Stable (6) Decreased pedal pulses: Code(s): R09.89 - Other specified symptoms and signs involving the circulatory and respiratory systems Status: Acute Assessment and Plan: Decreased pedal pulses, left greater than right. No acute ischemia. (7) Chronic anticoagulation: Code(s): Z79.01 - oil heaterman (current) use of anticoagulants Status: Acute Assessment and Plan: Will monitor closely (8) Abnormal lung scan: Code(s): R94.2 - Abnormal results of pulmonary function studies Status: Acute Assessment and Plan: On antibiotic... (9) Paroxysmal atrial fibrillation: Code(s): I48.0 - Paroxysmal atrial fibrillation Status: Acute Assessment and Plan: Currently in a sinus rhythm. (10) Kidney failure: Code(s): N19 - Unspecified kidney failure Status: Acute Assessment and Plan: Documented history of chronic kidney disease however baseline creatinine is unknown. He does appear dry on exam and given elevated sodium will receive cautious IV hydration overnight. Records requested from his primary care provider for review. Renal ultrasound and urine electrolytes have been ordered. Avoid nephrotoxic agents. (11) Type 2 diabetes mellitus: Code(s): E11.9 - Type 2 diabetes mellitus without complications Status: Acute Assessment and Plan: Sugar is better now Additional Plan 06/11/2021 Patient sugar is better now. So low held shows possible aspiration if mechanical soft diet no used. Plan is to restart mechanical so tight with thickening. Monitor glucose closely. Repeat labs in the morning. 06/13/2021 Plan is to continue current treatment. Add p.o. metformin during controlled sugar better. Continue current treatment, increase activity. Patient has refused G-tube placement. Will schedule swallow eval for tomorrow morning. if stays okay will discharge home. 06/14/2021 Patient is clinically better. Getting IV meropenem for ESBL UTI, Infectious Disease on consult, discharge plan depends on IV recommendation about antibiotics. 06/15/2021 Patient is scheduled for G-tube placement today. For ESBL UTI will continue IV antibiotic. Possible discharge on . 06/16/2021 Patient started G-tube placed yesterday. Will start feeding today. 06/17/2021 Patient is clinically improving. Plan is to continue ESBL treatment for total of 7 days. Patient finished antibiotics Monday, can be discharged back [facility] on Monday. Will continue with G-tube feeding at present time. 06/18/2021 Patient continued to improve. No new complaints. Will finish 7 day of ESBL treatment possible discharge to halfway the treatment is complete. Subjective Date/time seen: 06/18/21 10:47 Patient was seen during the morning r
[2021-06-18 11:55] LABS: Glucose Point of Care 128 mg/dl (65-105)
[2021-06-18] MEDS: SODIUM CHLORIDE 0.45% 1,000 ML 100 ML IV CONT ×2 (12:31→23:19)
--- NOTE | 2021-06-18 13:40 | PCNFU ---
Nutrition Follow-Up Complete: Swallowing Difficulites as related to Dysphagia as evidenced by modified diet orders. Goal: Meet estimanted nutritional needs Pt is progressing towards goal Pt current nutrition is Glucerna 1.2 running at 60mL/hr over 22 hours Last recorded weight is 57 kg. Bowel Motility: +BM 06/17 Labs Reviewed: Glu 128 Meds Noted: ferrous sulfate, apresoline, primaxin, insulin, cozaar, reglan, lopressor, protonix Skin: WNL Additional Notes: Pt is on tube feeding of glucerna 1.2 running at 60mL/hr over 22 hours providing 1584kcal, 80g of protein, 1063mL of water, meeting 83% of kcal needs and 100% of protein needs. Spoke to nursing who reports that pt is tolerating feedings well. Agree with diet order at this time. Will continue to follow. Will monitor every T/F
[2021-06-18 13:55] VITALS: BP 132/77; PULSE 63; RESP 16; TEMP 36; O2SAT 98
[2021-06-18 16:34] LABS: Glucose Point of Care 130 mg/dl (65-105)
[2021-06-18] MEDS: WARFARIN (*PBKC) 5 MG TABLET FEED TUBE (16:53)
[2021-06-18 18:36] LABS: Glucose Point of Care 114 mg/dl (65-105)
[2021-06-18 19:47] VITALS: PULSE 80
[2021-06-18] MEDS: ATORVASTATIN 40 MG TABLET 80 MG FEED TUBE (19:47)
[2021-06-18 19:58] VITALS: BP 150/70; PULSE 64; RESP 18; TEMP 36.4; O2SAT 97
[2021-06-18] MEDS: DEXTROSE 50% 25 GM/50 ML SYRINGE IV PUSH (23:27)
[2021-06-18 23:49] LABS: Glucose Point of Care 107 mg/dl (65-105)
[2021-06-18 23:49] LABS: Glucose Point of Care 43 mg/dl (65-105)
[2021-06-18 23:50] LABS: Glucose Point of Care 49 mg/dl (65-105)
[2021-06-19 00:46] LABS: Glucose Point of Care 105 mg/dl (65-105)
[2021-06-19 05:04] VITALS: BP 102/76; PULSE 62; RESP 17; TEMP 36.8; O2SAT 98
[2021-06-19 05:35] LABS: Glucose Point of Care 222 mg/dl (65-105)
[2021-06-19] MEDS: INSULIN HUMAN REGULAR (*BKC) 100 UNITS/ML SUB-Q ×3 (06:02→23:40)
[2021-06-19 07:07] LABS: Basophils Percent Auto 0.3 % (0.2-1.2); Eosinophils Absolute Auto 0.2 K/mm3 (0-0.3); Eosinophils Percent Auto 2.4 % (0-4.4); Hematocrit 33.3 % (42.0-52.0); Hemoglobin 10.6 g/dL (14.0-18.0); Immature Granulocyte Absolute 0.11 K/mm3 (0.00-0.031); Immature Granulocyte Percent A 1.7 % (0-0.5); Lymphocytes Absolute Auto 0.97 K/mm3 (0.9-3.2); Lymphocytes Percent Auto 14.6 % (18.3-44.2); Mean Corpuscular HGB Conc 31.8 g/dl (32-36); Mean Corpuscular Hemoglobin 29.3 pg (26-34); Mean Platelet Volume 11.9 fl (7.4-10.4); Monocytes Absolute Auto 0.4 K/mm3 (0.1-0.6); Monocytes Percent Auto 5.4 % (2.6-8.5); Neutrophils Percent Auto 75.6 % (45.5-73.1); Platelet Count Result 222 k/mm3 (150-375); Red Blood Count 3.62 M/mm3 (4.6-6.20); Red Cell Distribution Width 15.7 % (11.5-14.5); White Blood Count 6.7 K/mm3 (4.5-10.0)
[2021-06-19 07:16] LABS: INR 1.3; Prothrombin Time 16.1 Seconds (11.1-14.7)
[2021-06-19 07:27] LABS: Alanine Aminotransferase 11 U/L (4-50); Albumin Level 2.7 g/dL (3.5-5.1); Alkaline Phosphatase 82 U/L (38-126); Anion Gap 4 mmol/L (8-16); Aspartate Amino Transferase 29 U/L (17-59); Bilirubin,Total 0.5 mg/dL (0.2-1.3); Blood Urea Nitrogen 25 mg/dL (9-20); Calcium 7.8 mg/dL (8.4-10.2); Carbon Dioxide 25 mmol/L (22-30); Chloride 104 mmol/L (98-107); Estimated CRCL calculation 39 ml/min; Estimated Glomerular Filt Rate 55; Glucose 224 mg/dL (65-110); Potassium 4.1 mmol/L (3.4-5.0); Sodium 133 mmol/L (137-145)
[2021-06-19 08:55] VITALS: PULSE 70
[2021-06-19] MEDS: PANTOPRAZOLE SODIUM IV 40 MG VIAL IV PUSH (08:55)
[2021-06-19] MEDS: ASPIRIN 81 MG CHEWABLE TABLET FEED TUBE (08:55)
[2021-06-19] MEDS: METOPROLOL TARTRATE 25 MG TABLET FEED TUBE ×2 (08:55→19:39)
[2021-06-19] MEDS: FERROUS SULFATE LIQUID 325 MG/7.4 ML ELIXIR FEED TUBE (08:55)
[2021-06-19] MEDS: LOSARTAN POTASSIUM 50 MG TABLET FEED TUBE (08:57)
[2021-06-19 08:59] VITALS: BP 173/82; PULSE 70
--- NOTE | 2021-06-19 10:05 | PM.IMPN ---
Progress Note: A&P Assessment and Plan (1) Sepsis: Code(s): A41.9 - Sepsis, unspecified organism Status: Acute Assessment and Plan: Present on admission and supported by leukocytosis with left shift and acute kidney injury. Lactic acid level was not drawn on arrival. Blood in urine cultures have been ordered and are pending. The patient's vital signs have been stable. Patient is on IV imipenem. (2) Urinary tract infection: Code(s): N39.0 - Urinary tract infection, site not specified Status: Acute Assessment and Plan: Continue ceftriaxone, pending urine culture. Culture showed patient has ESBL, antibiotic was switched to imipenem. (3) Hypoglycemia: Code(s): E16.2 - Hypoglycemia, unspecified Status: Acute Assessment and Plan: Resolved (4) Unwitnessed fall: Code(s): R29.6 - Repeated falls Status: Acute Assessment and Plan: Getting physical therapy now, walking better (5) Closed head injury: Code(s): S09.90XA - Unspecified injury of head, initial encounter Status: Acute Assessment and Plan: Stable (6) Decreased pedal pulses: Code(s): R09.89 - Other specified symptoms and signs involving the circulatory and respiratory systems Status: Acute Assessment and Plan: Decreased pedal pulses, left greater than right. No acute ischemia. (7) Chronic anticoagulation: Code(s): Z79.01 - regional intermodal truck driver (current) use of anticoagulants Status: Acute Assessment and Plan: Will monitor closely (8) Abnormal lung scan: Code(s): R94.2 - Abnormal results of pulmonary function studies Status: Acute Assessment and Plan: On antibiotic... (9) Paroxysmal atrial fibrillation: Code(s): I48.0 - Paroxysmal atrial fibrillation Status: Acute Assessment and Plan: Currently in a sinus rhythm. (10) Kidney failure: Code(s): N19 - Unspecified kidney failure Status: Acute Assessment and Plan: Documented history of chronic kidney disease however baseline creatinine is unknown. He does appear dry on exam and given elevated sodium will receive cautious IV hydration overnight. Records requested from his primary care provider for review. Renal ultrasound and urine electrolytes have been ordered. Avoid nephrotoxic agents. (11) Type 2 diabetes mellitus: Code(s): E11.9 - Type 2 diabetes mellitus without complications Status: Acute Assessment and Plan: Sugar is better now Additional Plan 06/11/2021 Patient sugar is better now. So low held shows possible aspiration if mechanical soft diet no used. Plan is to restart mechanical so tight with thickening. Monitor glucose closely. Repeat labs in the morning. 06/13/2021 Plan is to continue current treatment. Add p.o. metformin during controlled sugar better. Continue current treatment, increase activity. Patient has refused G-tube placement. Will schedule swallow eval for tomorrow morning. if stays okay will discharge home. 06/14/2021 Patient is clinically better. Getting IV meropenem for ESBL UTI, Infectious Disease on consult, discharge plan depends on IV recommendation about antibiotics. 06/15/2021 Patient is scheduled for G-tube placement today. For ESBL UTI will continue IV antibiotic. Possible discharge on . 06/16/2021 Patient started G-tube placed yesterday. Will start feeding today. 06/17/2021 Patient is clinically improving. Plan is to continue ESBL treatment for total of 7 days. Patient finished antibiotics Monday, [facility]. Will continue with G-tube feeding at present time. 06/18/2021 Patient continued to improve. No new complaints. Will finish 7 day of ESBL treatment [facility] the treatment is complete. June 19, 2021 Will continue with IV imipenem for ESBL UTI, possible discharge [facility]
[2021-06-19] MEDS: ACETAMINOPHEN 325 MG TABLET 650 MG FEED TUBE (12:07)
[2021-06-19] MEDS: ALPRAZolam (*CRX) 0.5 MG TABLET PO ×2 (12:08→19:40)
[2021-06-19 14:39] VITALS: BP 173/81; PULSE 60; RESP 14; TEMP 37; O2SAT 98
[2021-06-19] MEDS: hydrALAZINE HCL 20 MG/ML VIAL 10 MG IV PUSH (14:44)
[2021-06-19 16:42] LABS: Glucose Point of Care 189 mg/dl (65-105)
[2021-06-19] MEDS: WARFARIN (*PBKC) 5 MG TABLET FEED TUBE (17:39)
[2021-06-19] MEDS: BENZONATATE 100 MG CAPSULE PO (19:38)
[2021-06-19 19:39] VITALS: PULSE 76
[2021-06-19] MEDS: ATORVASTATIN 40 MG TABLET 80 MG FEED TUBE (19:39)
[2021-06-19] MEDS: METOCLOPRAMIDE HCL INJ 10 MG/2 ML VIAL IV PUSH (19:40)
[2021-06-19 19:44] VITALS: BP 176/65; PULSE 74; RESP 17; TEMP 36.4; O2SAT 98
[2021-06-19 23:38] LABS: Glucose Point of Care 342 mg/dl (65-105)
[2021-06-20] MEDS: ALPRAZolam (*CRX) 0.5 MG TABLET PO (00:06)
[2021-06-20 04:13] VITALS: BP 157/78; PULSE 59; RESP 17; TEMP 36; O2SAT 99
[2021-06-20] MEDS: INSULIN HUMAN REGULAR (*BKC) 100 UNITS/ML SUB-Q ×2 (05:59→11:45)
[2021-06-20 06:07] LABS: Glucose Point of Care 266 mg/dl (65-105)
[2021-06-20 06:35] LABS: INR 1.2
[2021-06-20] MEDS: ASPIRIN 81 MG CHEWABLE TABLET FEED TUBE (07:49)
[2021-06-20] MEDS: LOSARTAN POTASSIUM 50 MG TABLET FEED TUBE (07:49)
[2021-06-20] MEDS: FERROUS SULFATE LIQUID 325 MG/7.4 ML ELIXIR FEED TUBE (07:49)
[2021-06-20 07:50] VITALS: PULSE 76
[2021-06-20] MEDS: METOPROLOL TARTRATE 25 MG TABLET FEED TUBE ×2 (07:50→20:25)
[2021-06-20] MEDS: PANTOPRAZOLE SODIUM IV 40 MG VIAL IV PUSH (07:51)
--- NOTE | 2021-06-20 10:44 | PM.IMPN ---
Progress Note: A&P Assessment and Plan (1) Sepsis: Code(s): A41.9 - Sepsis, unspecified organism Status: Acute Assessment and Plan: Present on admission and supported by leukocytosis with left shift and acute kidney injury. Lactic acid level was not drawn on arrival. Blood in urine cultures have been ordered and are pending. The patient's vital signs have been stable. Patient is on IV imipenem. (2) Urinary tract infection: Code(s): N39.0 - Urinary tract infection, site not specified Status: Acute Assessment and Plan: Continue ceftriaxone, pending urine culture. Culture showed patient has ESBL, antibiotic was switched to imipenem. (3) Hypoglycemia: Code(s): E16.2 - Hypoglycemia, unspecified Status: Acute Assessment and Plan: Resolved (4) Unwitnessed fall: Code(s): R29.6 - Repeated falls Status: Acute Assessment and Plan: Getting physical therapy now, walking better (5) Closed head injury: Code(s): S09.90XA - Unspecified injury of head, initial encounter Status: Acute Assessment and Plan: Stable (6) Decreased pedal pulses: Code(s): R09.89 - Other specified symptoms and signs involving the circulatory and respiratory systems Status: Acute Assessment and Plan: Decreased pedal pulses, left greater than right. No acute ischemia. (7) Chronic anticoagulation: Code(s): Z79.01 - extermination supervisor (current) use of anticoagulants Status: Acute Assessment and Plan: Will monitor closely (8) Abnormal lung scan: Code(s): R94.2 - Abnormal results of pulmonary function studies Status: Acute Assessment and Plan: On antibiotic... (9) Paroxysmal atrial fibrillation: Code(s): I48.0 - Paroxysmal atrial fibrillation Status: Acute Assessment and Plan: Currently in a sinus rhythm. (10) Kidney failure: Code(s): N19 - Unspecified kidney failure Status: Acute Assessment and Plan: Documented history of chronic kidney disease however baseline creatinine is unknown. He does appear dry on exam and given elevated sodium will receive cautious IV hydration overnight. Records requested from his primary care provider for review. Renal ultrasound and urine electrolytes have been ordered. Avoid nephrotoxic agents. (11) Type 2 diabetes mellitus: Code(s): E11.9 - Type 2 diabetes mellitus without complications Status: Acute Assessment and Plan: Sugar is better now Additional Plan 06/11/2021 Patient sugar is better now. So low held shows possible aspiration if mechanical soft diet no used. Plan is to restart mechanical so tight with thickening. Monitor glucose closely. Repeat labs in the morning. 06/13/2021 Plan is to continue current treatment. Add p.o. metformin during controlled sugar better. Continue current treatment, increase activity. Patient has refused G-tube placement. Will schedule swallow eval for tomorrow morning. if stays okay will discharge home. 06/14/2021 Patient is clinically better. Getting IV meropenem for ESBL UTI, Infectious Disease on consult, discharge plan depends on IV recommendation about antibiotics. 06/15/2021 Patient is scheduled for G-tube placement today. For ESBL UTI will continue IV antibiotic. Possible discharge on . 06/16/2021 Patient started G-tube placed yesterday. Will start feeding today. 06/17/2021 Patient is clinically improving. Plan is to continue ESBL treatment for total of 7 days. Patient finished antibiotics Monday, can be discharged back [facility] on Monday. Will continue with G-tube feeding at present time. 06/18/2021 Patient continued to improve. No new complaints. Will finish 7 day of ESBL treatment possible discharge to [facility] the treatment is complete. June 19, 2021 Will continue with IV imipenem for ESBL UTI, possible discharge [facility]
[2021-06-20 11:45] LABS: Glucose Point of Care 223 mg/dl (65-105)
[2021-06-20 14:51] VITALS: BP 164/71; PULSE 54; RESP 14; TEMP 36.4; O2SAT 99
[2021-06-20] MEDS: WARFARIN (*PBKC) 5 MG TABLET FEED TUBE (16:22)
[2021-06-20 17:20] LABS: Glucose Point of Care 113 mg/dl (65-105)
[2021-06-20 20:00] VITALS: PULSE 55; RESP 18; O2SAT 99
[2021-06-20 20:25] VITALS: PULSE 60
[2021-06-20] MEDS: ATORVASTATIN 40 MG TABLET 80 MG FEED TUBE (20:25)
[2021-06-20 21:42] VITALS: BP 171/63; PULSE 55; RESP 18; TEMP 36.9; O2SAT 99
[2021-06-20 22:20] LABS: Glucose Point of Care 120 mg/dl (65-105)
[2021-06-20 23:46] LABS: Glucose Point of Care 180 mg/dl (65-105)
[2021-06-21 05:23] VITALS: BP 158/72; PULSE 61; RESP 18; TEMP 36.2; O2SAT 94
[2021-06-21] MEDS: INSULIN HUMAN REGULAR (*BKC) 100 UNITS/ML SUB-Q ×2 (06:16→12:32)
--- NOTE | 2021-06-21 06:34 | PC.NURSE ---
pt line is infiltrated and right hand slightly swollen, pt refused a new iv line to be placed hence pt did not receive iv ABX this morning
[2021-06-21 06:40] LABS: Glucose Point of Care 303 mg/dl (65-105)
[2021-06-21] MEDS: LOSARTAN POTASSIUM 50 MG TABLET FEED TUBE (09:20)
[2021-06-21 09:21] VITALS: PULSE 68
[2021-06-21] MEDS: ASPIRIN 81 MG CHEWABLE TABLET FEED TUBE (09:21)
[2021-06-21] MEDS: PANTOPRAZOLE SODIUM IV 40 MG VIAL IV PUSH (09:21)
[2021-06-21] MEDS: METOPROLOL TARTRATE 25 MG TABLET FEED TUBE (09:21)
[2021-06-21] MEDS: FERROUS SULFATE LIQUID 325 MG/7.4 ML ELIXIR FEED TUBE (09:21)
--- NOTE | 2021-06-21 09:47 | PM.DS ---
DS: Admitting Diagnosis Discharge Date June 21, 2021 Admitting Diagnosis Sepsis ESBL UTI DS: Discharge Diagnosis Discharge Diagnosis (1) Sepsis: Code(s): A41.9 - Sepsis, unspecified organism Status: Acute Assessment and Plan: Present on admission and supported by leukocytosis with left shift and acute kidney injury. Lactic acid level was not drawn on arrival. Blood in urine cultures have been ordered and are pending. The patient's vital signs have been stable. Patient is on IV imipenem. (2) Urinary tract infection: Code(s): N39.0 - Urinary tract infection, site not specified Status: Acute Assessment and Plan: Continue ceftriaxone, pending urine culture. Culture showed patient has ESBL, antibiotic was switched to imipenem. (3) Hypoglycemia: Code(s): E16.2 - Hypoglycemia, unspecified Status: Acute Assessment and Plan: Resolved (4) Unwitnessed fall: Code(s): R29.6 - Repeated falls Status: Acute Assessment and Plan: Getting physical therapy now, walking better (5) Closed head injury: Code(s): S09.90XA - Unspecified injury of head, initial encounter Status: Acute Assessment and Plan: Stable (6) Decreased pedal pulses: Code(s): R09.89 - Other specified symptoms and signs involving the circulatory and respiratory systems Status: Acute Assessment and Plan: Decreased pedal pulses, left greater than right. No acute ischemia. (7) Chronic anticoagulation: Code(s): Z79.01 - long term care administrator (current) use of anticoagulants Status: Acute Assessment and Plan: Will monitor closely (8) Abnormal lung scan: Code(s): R94.2 - Abnormal results of pulmonary function studies Status: Acute Assessment and Plan: On antibiotic... (9) Paroxysmal atrial fibrillation: Code(s): I48.0 - Paroxysmal atrial fibrillation Status: Acute Assessment and Plan: Currently in a sinus rhythm. (10) Kidney failure: Code(s): N19 - Unspecified kidney failure Status: Acute Assessment and Plan: Documented history of chronic kidney disease however baseline creatinine is unknown. He does appear dry on exam and given elevated sodium will receive cautious IV hydration overnight. Records requested from his primary care provider for review. Renal ultrasound and urine electrolytes have been ordered. Avoid nephrotoxic agents. (11) Type 2 diabetes mellitus: Code(s): E11.9 - Type 2 diabetes mellitus without complications Status: Acute Assessment and Plan: Sugar is better now DS: Summary Hospital Course Reason for hospitalization: Sepsis Hospital Course: Patient is 70 years old [facility] admitted with complaint of having generalized weakness and urinary tract infection. Patient was found to have sepsis ESBL UTI. Patient was given IV antibiotics and cultures were done. Today patient completed his course of IV antibiotics. Patient also received G-tube during the stay in the hospital as he failed swallow eval. Today patient is feeling better so patient was sent back [facility] stable condition, follow-up primary care physician patient GI schedule outpatient next week. Status at Discharge Cognitive/behavioral status at discharge: Stable Functional status at discharge: uses cane/walker Overall status at discharge: patient is not back to baseline Time Spent with Patient Time attestation: Total time spent providing and/or coordinating discharge services: Time spent: Greater than 30 minutes Exam Narrative: General: Frail, chronically ill-appearing male in the semi-Sargent position. Weight: 57 kg. BMI: 17.0. HEENT: Abrasions noted on the right mid forehead and on the bridge of the nose. PERRL, EOMI. Sclerae anicteric. Conjunctiva mildly injected. Dry mucous membranes. Poor dental hygiene. Oropharynx not visualiz
[2021-06-21 11:35] LABS: Glucose Point of Care 225 mg/dl (65-105)
[2021-06-21 12:55] LABS: EDCOVIDSCREEN Negative (Negative)
[2021-06-21 15:16] VITALS: BP 160/75; PULSE 61; RESP 20; TEMP 36.7; O2SAT 98
[2021-06-21 15:59] LABS: INR 1.5; Prothrombin Time 17.4 Seconds (11.1-14.7)
--- NOTE | 2021-06-21 16:05 | PC.NURSE ---
attempted to call pt's POA, Carly Ferguson at [phone], two times with no answer. Voicemail left to let POA know pt is being discharged back to [facility].
== END 2021-06-21 15:45 | DRG 871 ==
LOC: ANHED 17:02 → ANH3MED 17:29
PROVIDERS: Internal Medicine Gastroenterology; Physician Assistant; Admitting Provider Family Medicine; Emergency Provider General Practice; Visit Provider Internal Medicine
PROC: 0DH63UZ Insertion of Feeding Device into Stomach, Percutaneous Approach (ICD-10-PCS; CPT 43246; principal; 2021-06-15 10:45)
DX: A41.9 Sepsis, unspecified organism (principal); J69.0 Pneumonitis due to inhalation of food and vomit; N39.0 Urinary tract infection, site not specified; N17.9 Acute kidney failure, unspecified; R64 Cachexia; Z68.1 Body mass index [BMI] 19.9 or less, adult; Z20.822 Contact with and (suspected) exposure to COVID-19; R29.6 Repeated falls; R13.12 Dysphagia, oropharyngeal phase; E11.22 Type 2 diabetes mellitus with diabetic chronic kidney disease; N18.9 Chronic kidney disease, unspecified; E11.649 Type 2 diabetes mellitus with hypoglycemia without coma; R09.89 Other specified symptoms and signs involving the circulatory and respiratory systems; S09.90XA Unspecified injury of head, initial encounter; I48.0 Paroxysmal atrial fibrillation; D64.9 Anemia, unspecified; E78.5 Hyperlipidemia, unspecified; I25.10 Atherosclerotic heart disease of native coronary artery without angina pectoris; F41.8 Other specified anxiety disorders; W06.XXXA Fall from bed, initial encounter; Z79.01 Long term (current) use of anticoagulants; Z95.1 Presence of aortocoronary bypass graft
CPT/HCPCS: 36415; 43246; 51701; 70450; 71045; 71046; 72125; 73080; 73521; 73610; 74018; 74176; 76775; 80048; 80053; 81001; 82436; 82550; 82570; 82948; 83036; 83690; 83735; 83935; 84100; 84133; 84156; 84300; 84443; 85025; 85027; 85610; 85730; 87040; 87077; 87086; 87088; 87186; 87426; 92611; 93005; 93306; 93922; 96365; 96366; 96367; 96368; 96375; 96376; 97161; 99285; A9270; C9113; C9803; G0378; J0360; J0456; J0696; J0743; J1815; J2405; J2704; J2765; J7030; J7120